=== PATIENT | female | born 1960 | race Caucasian/White ===

== ENCOUNTER 2016-09-15 17:56 | Inpatient (IN) ==
[2016-09-15] MEDS ORDERED: Ipratropium/Albuterol Neb 3 ML IH ONE (18:35)
[2016-09-15] MEDS ORDERED: methylPREDNISolone 125 MG/2 ML VIAL IVP ONE (18:35)
--- NOTE | 2016-09-15 18:38 | Emergency Department Note ---
Disposition Clinical Impression: Hypoxia, Acute exacerbation of chronic obstructive airways disease Pneumonia Qualifiers: Pneumonia type: due to unspecified organism Laterality: left Lung location: lower lobe of lung Qualified Code(s): J18.1 - Lobar pneumonia, unspecified organism Disposition: Admitted As Inpatient Condition: Fair Referrals: NONE,PCP [Primary Care Provider] - Forms: ED Satisfaction Letter Time of Disposition: 20:09 SOB HPI - General Chief Complaint: ED Shortness of Breath/Dyspnea Stated Complaint: ABDIEL Time Seen by Provider: 09/15/16 18:27 Source: patient Limitations: no limitations Nursing Notes Reviewed: Yes Vital Signs Reviewed: Yes - History of Present Illness 56-year-old female with a history COPD comes in complaining of shortness of breath. All socks on arrival was 75%. On a nonrebreather she is up to 97%. The patient states she thinks she has pneumonia. She's had a cough and shortness of breath for several days. Pt Subjective Complaint: shortness of breath, cough Onset (ago): day(s) Context: recent illness Severity: moderate, severe Consistency/Duration: constant Improves with: oxygen Worsens with: exertion Known history of: COPD Associated symptoms: Reports: fever, cough, wheezing Treatment prior to arrival: none Cough present: Yes Cough Description: Involuntary Cough Frequency: Intermittent - Related Data Previous Rx's Medication Instructions Recorded Sulfamethoxazole/Trimeth DS 1 each PO BID 7 Days 05/17/16 [Bactrim DS] cephALEXin [Keflex] 500 mg PO QID 7 Days 05/17/16 Allergies Allergy/AdvReac Type Severity Reaction Status Date / Time No Known Allergies Allergy Verified 09/15/16 18:19 All systems ED: reviewed and negative except as stated. Constitutional: Denies: fever, chills, weakness, weight change Eyes: Denies: eye pain, eye discharge, vision change ENT ED: Denies: ear pain, throat pain, dental pain, hearing loss, epistaxis, congestion, dysphagia Cardiovascular: Denies: chest pain, palpitations, dyspnea on exertion, edema, syncope Respiratory: Reports: cough, dyspnea, wheezes. Denies: hemoptysis, stridor Gastrointestinal: Denies: abdominal pain, nausea, vomiting, diarrhea, constipation, hematemesis, melena, hematochezia Genitourinary: Denies: dysuria, frequency, hematuria, discharge Musculoskeletal: Denies: back pain, neck pain, arthralgia, myalgia Integumentary: Denies: rash, abrasion, lesions Neurological: Denies: headache, weakness, numbness, paresthesias, confusion, abnormal gait, vertigo Psychiatric: Denies: anxiety, depression, suicidal thoughts, homicidal thoughts , auditory hallucinations, visual hallucinations Endocrine: Denies: fatigue Hematological/Lymphatic: Denies: easy bleeding, easy bruising Allergic/Immunologic: Denies: facial swelling, urticaria Past Medical History - Past Medical History Medical history: Reports: COPD, hypertension Psychiatric history: Reports: no psych history - Social History Smoking Status: Current every day smoker Smokeless Tobacco Status: No Alcohol use: Reports: none Drug use: Reports: none Physical Exam - General Limitations: no limitations General appearance: alert - Head Head exam: atraumatic, normocephalic, normal inspection - Eye Eye exam: Present: normal appearance, PERRL, EOMI - ENT ENT exam: normal exam, normal oropharynx, mucous membranes moist - Neck Neck exam: Present: normal inspection, full ROM, trachea midline - Chest Chest inspection: Present: normal inspection - Respiratory Respiratory exam: Present: wheezes, accessory muscle use - Cardiovascular Cardiovascular exam: Present: regular rate, normal rhythm, normal heart sounds - Abdominal Exam Abdominal exam: Present: soft - Extremities Exam Extremities exam: Present: normal inspection, full ROM. Absent: tenderness, pedal edema - Expanded Lower Extremity Exam Neurovascular/Tendon exam: Absent: motor deficit, sensory deficit, tendon deficit Gait: not tested/not observed - Back Exam Back exam: Present: normal inspection, full ROM. Absent: tenderness - Neurological Exam Neurological exam: Present: alert, oriented X3 - Psychiatric Psychiatric exam: Present: normal affect, normal mood - Skin Skin exam: Present: warm, dry, intact, normal color Course - Reevaluation(s) Reevaluation #1: 56-year-old with increasing shortness of breath. Patient has COPD on home oxygen. Was hypoxic initially on arrival. Chest x-ray does show a left lower lobe infiltrate. Patient will be given Levaquin and admitted to the hospital. Time: 20:08 - Consultations Consultation #1: Discussed with Dr.Tress stevenson. Time: 20:08 Vital Signs Temperature 98.3 F 09/15/16 18:20 Pulse Rate 71 09/15/16 18:20 Respiratory Rate 24 09/15/16 18:20 Blood Pressure 105/71 09/15/16 18:20 O2 Sat by Pulse Oximetry 75 09/15/16 18:20 Temperature 98.3 F 09/15/16 18:20 Pulse Rate 71 09/15/16 18:20 Respiratory Rate 18 09/15/16 19:03 Blood Pressure 105/71 09/15/16 18:20 O2 Sat by Pulse Oximetry 90 09/15/16 19:15 Oxygen Delivery Oxygen Delivery Room Air Shortness of Breath/Dyspnea - Lab Data Lab results reviewed: Yes I reviewed the patient's lab results. Result diagrams: 09/15/16 18:59 09/15/16 18:59 Lab Results 09/15/16 09/15/16 09/15/16 Range/Units 18:52 18:59 18:59 WBC 10.3 (4.3-11.1) K/mcL RBC 4.49 (3.82-4.97) M/mcL Hgb 12.7 (11.5-15.4) g/dL Hct 39.5 (35.3-44.9) % MCV 88.0 (83.0-100.0) fL MCH 28.3 (28.0-33.3) pg MCHC 32.2 (31.6-35.5) g/dL RDW 13.4 (11.5-14.5) % Plt Count 318 (140-400) K/mcL MPV 9.7 (9.4-12.4) fL Immature Gran % 0.4 (0-4) % Seg Neutrophils % 67.0 % Lymphocytes % 21.4 % Monocytes % 8.3 % Eosinophils % 2.1 % Basophils % 0.8 % Neutrophils # 6.9 (1.6-8.9) K/mcL Lymphocytes # 2.2 (0.6-4.6) K/mcL Monocytes # 0.9 (0.0-1.3) K/mcL Eosinophils # 0.2 (0.0-0.6) K/mcL Basophils # 0.1 (0.0-0.2) K/mcL Reactive Lymphocytes Present A (Not Present) Platelet Estimate Normal (Normal) ABG pH 7.44 (7.32-7.45) pH Units ABG pCO2 50 H (35-45) mmHg ABG pO2 57 L (85-104) mmHg ABG HCO3 34.0 H (21-27) mEQ/L ABG Total CO2 35.5 H (20-26) mEq/L ABG O2 Saturation 90 L (95-98) % ABG Base Excess 8.3 H (-2.0 to 3.0) mEq/L Blood Gas Modality NRB Inspired O2 100 % Sodium 138 (136-145) mEq/L Potassium 2.4 L* (3.5-4.5) mEq/L Chloride 96 L (98-109) mEq/L Carbon Dioxide 31 H (19-29) mEq/L BUN 11 (7-20) mg/dL Creatinine 0.86 (0.57-1.11) mg/dL Est GFR ( Amer) > 60 (> 60) Est GFR (Non-Af Amer) > 60 (> 60) BUN/Creatinine Ratio 13 (6-26) Glucose 136 H (70-99) mg/dL Calculated Osmolality 287 (280-300) Lactic Acid (0.5-2.2) mmol/L Calcium 9.4 (8.6-10.8) mg/dL Troponin I (0-0.03) ng/mL B-Natriuretic Peptide (0-100) pg/mL 09/15/16 09/15/16 09/15/16 Range/Units 18:59 18:59 18:59 WBC (4.3-11.1) K/mcL RBC (3.82-4.97) M/mcL Hgb (11.5-15.4) g/dL Hct (35.3-44.9) % MCV (83.0-100.0) fL MCH (28.0-33.3) pg MCHC (31.6-35.5) g/dL RDW (11.5-14.5) % Plt Count (140-400) K/mcL MPV (9.4-12.4) fL Immature Gran % (0-4) % Seg Neutrophils % % Lymphocytes % % Monocytes % % Eosinophils % % Basophils % % Neutrophils # (1.6-8.9) K/mcL Lymphocytes # (0.6-4.6) K/mcL Monocytes # (0.0-1.3) K/mcL Eosinophils # (0.0-0.6) K/mcL Basophils # (0.0-0.2) K/mcL Reactive Lymphocytes (Not Present) Platelet Estimate (Normal) ABG pH (7.32-7.45) pH Units ABG pCO2 (35-45) mmHg ABG pO2 (85-104) mmHg ABG HCO3 (21-27) mEQ/L ABG Total CO2 (20-26) mEq/L ABG O2 Saturation (95-98) % ABG Base Excess (-2.0 to 3.0) mEq/L Blood Gas Modality Inspired O2 % Sodium (136-145) mEq/L Potassium (3.5-4.5) mEq/L Chloride (98-109) mEq/L Carbon Dioxide (19-29) mEq/L BUN (7-20) mg/dL Creatinine (0.57-1.11) mg/dL Est GFR ( Amer) (> 60) Est GFR (Non-Af Amer) (> 60) BUN/Creatinine Ratio (6-26) Glucose (70-99) mg/dL Calculated Osmolality (280-300) Lactic Acid 1.1 (0.5-2.2) mmol/L Calcium (8.6-10.8) mg/dL Troponin I 0.00 (0-0.03) ng/mL B-Natriuretic Peptide 100 (0-100) pg/mL - Radiology Data Radiology results reviewed: Yes I reviewed the patient's radiology results. Chest X-Ray 09/15/16 18:35 IMPRESSION: Patchy left basilar opacity which may represent atelectasis or pneumonia. Increased prominence of the right hilum. This could be related to portable technique. Consider short-term follow-up or dedicated two view chest x-ray. If this persists, further evaluation with a contrast-enhanced CT may be warranted. D/ / 09/15/2016 19:01:55 Ivet Martinez MD / [facility] Interpreting Provider: Ivet Martinez MD - EKG Data EKG attestation: Yes I reviewed and interpreted this EKG. EKG shows normal: Reports: sinus rhythm Rate: Reports: normal Rhythm: Reports: NSR [place]/QRS: Reports: IVCD T wave inversions noted in: Reports: v1, v2, v3, v4, v5, v6 Interpretation: Reports: other (T-wave inversion in the precordial leads.)
[2016-09-15 19:00] LABS: ABG Base Excess 8.3 mEq/L (-2.0 to 3.0); ABG Oxygen Saturation 90 % (95-98); ABG PCO2 50 mmHg (35-45); ABG PH 7.44 pH Units (7.32-7.45); ABG PO2 57 mmHg (85-104); ABG TCO2 35.5 mEq/L (20-26); Blood Gas FiO2 100 %
[2016-09-15 19:07] LABS: Basophils # 0.1 K/mcL (0.0-0.2); Basophils % 0.8 %; Eosinophils # 0.2 K/mcL (0.0-0.6); Eosinophils % 2.1 %; Hematocrit 39.5 % (35.3-44.9); Hemoglobin 12.7 g/dL (11.5-15.4); Immature Granulocytes % 0.4 % (0-4); Lymphocytes # 2.2 K/mcL (0.6-4.6); Lymphocytes % 21.4 %; Mean Corpuscular HGB Conc 32.2 g/dL (31.6-35.5); Mean Corpuscular Hemoglobin 28.3 pg (28.0-33.3); Mean Platelet Volume 9.7 fL (9.4-12.4); Monocytes # 0.9 K/mcL (0.0-1.3); Monocytes % 8.3 %; Neutrophils # 6.9 K/mcL (1.6-8.9); Platelet Count 318 K/mcL (140-400); Red Blood Count 4.49 M/mcL (3.82-4.97); Red Cell Distribution Width 13.4 % (11.5-14.5)
[2016-09-15 19:19] LABS: BUN/Creatinine Ratio 13 (6-26); Blood Urea Nitrogen 11 mg/dL (7-20); Calcium 9.4 mg/dL (8.6-10.8); Carbon Dioxide 31 mEq/L (19-29); Chloride 96 mEq/L (98-109); Glucose 136 mg/dL (70-99); Osmolality,Calculated 287 (280-300); Sodium 138 mEq/L (136-145); eGFR For African Americans > 60 (> 60); eGFR For Non-African Americans > 60 (> 60)
[2016-09-15 19:21] LABS: Potassium 2.4 mEq/L (3.5-4.5)
[2016-09-15 19:34] LABS: Reactive Lymphocytes Present (Not Present)
[2016-09-15 19:35] LABS: Platelet Estimate Normal (Normal)
[2016-09-15] MEDS ORDERED: Levofloxacin 750 MG/150 ML 750 MG/150 ML BAG IVPB ONE (19:56)
[2016-09-15] MEDS ORDERED: 0.9 % Sodium Chloride 1,000 ML IVC ONE (20:21)
[2016-09-15] MEDS ORDERED: Acetaminophen 325 MG TABLET PO PRN (20:52)
[2016-09-15] MEDS ORDERED: Naloxone 0.4 MG/ML INJ IVP PRN (20:52)
[2016-09-15] MEDS ORDERED: Furosemide 20 MG/2 ML VIAL IVP ONE (21:03)
[2016-09-15] MEDS ORDERED: Potassium Chloride 20 MEQ, Lidocaine 1% 2 ML in D5% in Water 250 ML IVPB ONE (21:06)
--- NOTE | 2016-09-15 21:07 | Event Note ---
Date of Encounter: 09/15/16 Time of Encounter: 21:02 Patient seen and examined with nurse practitioner. 56-year-old female with history of COPD not on O2, presents to the ED with shortness of breath. She was pretty hypoxic requiring non-rebreather on arrival to the ER. Currently she is on the 5 L. Speaking in full sentences. We will treat for community acquired pneumonia and COPD exacerbation with oral steroids and around-the- clock nebulizer treatment. Her electrocardiogram shows diffuse T wave inversion in the precordial leads. Will have to rule out acute coronary syndrome although hypokalemia may cause these changes, her potassium is 2.4. Serial cardiac markers. Will give one dose of Lovenox for possibility of angina equivalent since she has been describing orthopnea the past couple weeks. Cardiology consultation. She does have risk factors for coronary artery disease including age, chronic smoking, hypertension, and positive family history so needs coronary evaluation. Never had that before. Replace hypokalemia. Check magnesium and replace accordingly. Hypokalemia is due to diuretics. But also give the patient gentle diuresis. Check BNP. She is focal
[2016-09-15] MEDS ORDERED: Albuterol 2.5 MG/3 ML NEBULIZER IH PRN (21:08)
[2016-09-15] MEDS ORDERED: *HR* Enoxaparin 80 MG/0.8 ML SYRINGE SQ SCH (21:12)
--- NOTE | 2016-09-15 21:19 | Internal Med History&Physical ---
Date of Encounter: 09/15/16 Time of Encounter: 21:16 Assessment and Plan (1) Hypoxia Current visit: Yes Status: Acute Patient presenting with shortness of breath, satting 75% on room air, improved to low 90s on 5L. CXR sows patchy left basilar opacity consistent with pneumonia vs. atelectasis. She has mild wheezing on the left with mild crackles in left base. ABG showed pO2 of 57. Hypoxia secondary to Pneumonia and COPD exacerbation, but also concerned about cardiac origins with ekg changes. Treating Pneumonia and COPD with nebulizers, steroids, antibiotics weight based lovenox, echocardiogram, serial troponins and cardiology consult. 20mg Lasix IVP ordered daily with concern for element of CHF. continuous pulse oximetry titrate oxygen to maintain saturation > 90% (2) Pneumonia Current visit: Yes Status: Acute Shortness of breath and productive cough. CXR showed patchy left basilar opacity consistent with atelectasis vs. pneumonia. Levaquin IVPB duonebs QID albuterol nebulizer Q2hr PRN titrate O2 to maintain saturation > 90% Qualifiers: Pneumonia type: due to unspecified organism Laterality: left Lung location: lower lobe of lung Qualified Code(s): J18.1 - Lobar pneumonia, unspecified organism (3) Hypokalemia Current visit: Yes Status: Acute potassium of 2.4. Patient on lasix and lisinopril at home and does not take potassium supplement. T-wave inversions on EKG possibly due to hypokalemia. Continuous awake overnight monitor. stat magnesium ordered. Total of 30mEq IV and 40mEq PO ordered, recheck chemistry and magnesium in the morning. (4) Acute electrocardiogram changes Current visit: Yes Status: Acute EKG shows t-wave inversions in pre-cordial leads. Patient denies chest pain but presents with shortness of breath and hypoxia. She has risk factors for CAD including HTN, smoking, and family history. T-wave changes possibly due to hypokalemia with potassium of 2.4. weight based lovenox given x 1 dose. Will get dVT prophylactic dose in morning. Trend troponin continuous awake overnight monitor echocardiogram cardiology consult (5) Acute exacerbation of chronic obstructive airways disease Current visit: Yes Status: Acute Patient with COPD presenting with productive cough, shortness of breath and hypoxia. ABG sowed pCO2 of 50 and pO2 of 57. She was satting 75% on room air, improved to low 90s% on 5L NC. CXR sowed patchy left basilar opacity consistent with atelectasis vs. Pneumonia. 125mg of solu-medrol IVP given, continue with prednisone PO 40mg daily duoneb treatments QID albuterol nebulizer Q2h PRN budesonide/formotorol BID titrate oxygen to maintain saturation > 90%. (6) DVT prophylaxis Current visit: Yes Status: Acute Internal Medicine - H&P: HPI Chief complaint: shortness of breath Admitted From: Emergency Dept Plans for Post Hospital Care: Home History of present illness: Ms. Quiles is a 56 year old female with hypertension, COPD, hepatitis C, presented to the emergency department today with complaints of shortness of breath and productive cough. Patient reports that approximately a week ago she had symptoms starting with a productive cough, she had increasing shortness of breath over the last week, with subjective fever and chills. She presented to her PCP today who sent her over to the emergency room. Patient reports occasional lightheadedness. She denies any chest pain, palpitations. She reports occasional wheezing, and poor appetite. She denies any nausea, vomiting , diarrhea, abdominal pain, numbness or tingling. Evaluation in the emergency department revealed patient was satting 75% on room air, she improved to the low 90s on 5 L nasal cannula. White blood cell count was normal at 10.3. Lactate was normal at 1.1. She was hypokalemic with potassium of 2.4. Troponin was negative at 0.00, BNP was normal at 100. Chest x-ray showed patchy left basilar opacity, which is atelectasis versus pneumonia. EKG was sinus rhythm with T-wave inversions in precordial leads, which is new from previous. On exam, patient alert and oriented, in no acute distress. Heart has regular rate and rhythm. Lungs with mild wheezes on the left side, and mild crackles in the left base. No peripheral edema, peripheral pulses strong and intact. Past Med Surg Social Fam HX - Past Medical History Medical history: COPD, hepatitis, hypertension Psychiatric history: no psych history - Past Surgical History Surgical History: cholecystectomy, hysterectomy - Social History Smoking Status: Current every day smoker Smokeless Tobacco Status: No Alcohol use: none Drug use: none - Family History Father Living Status: Hx Family Cardiac Disorders: Yes Mother Living Status: Hx Family Endocrine Disorder: Yes (DM) Internal Medicine - H&P: Meds Albuterol Sulfate [Albuterol Inhaler] 2 puff IH Q4H PRN 09/15/16 [History] Atenolol [Tenormin] 50 mg PO DAILY 09/15/16 [History] Buprenorphine HCl/Naloxone HCl [Suboxone 8 mg-2 mg Sl Film] 1 each SL BID [History] Cyclobenzaprine [Flexeril] 10 mg PO TID PRN 09/15/16 [History] Furosemide [Lasix] 20 mg PO DAILY 09/15/16 [History] Lisinopril [Zestril] 20 mg PO DAILY 09/15/16 [History] levoFLOXacin [Levofloxacin] 500 mg PO DAILY 09/15/16 [History] Allergies No Known Allergies Allergy (Verified 09/15/16 18:19) All Systems PM: A 10-system review of systems was performed and is negative for pertinent findings except as documented above in the HPI. - Constitutional Constitutional: anorexia, chills, fever(s), no night sweats - EENT Eyes: no change in vision, no discharge, no pain, no photophobia Ears: no ear discharge, no ear pain, no tinnitus Nose, mouth and throat: no dysphagia, no nasal discharge, no neck pain, no sore throat - Cardiovascular Cardiovascular ROS IM: dyspnea, dyspnea on exertion, lightheadedness, orthopnea , no chest pain, no diaphoresis, no palpitations, no syncope - Respiratory Respiratory: cough, dyspnea, dyspnea on exertion, wheezing, chest congestion, excessive phlegm production - Gastrointestinal Gastrointestinal: no abdominal pain, no diarrhea, no hematemesis, no hematochezia, no melena, no nausea, no vomiting - Genitourinary Genitourinary: no change in urinary stream, no dysuria, no flank pain, no hematuria - Musculoskeletal Musculoskeletal ROS IM: no numbness, no tingling - Integumentary Integumentary IM: no rash, no unusual bruising - Neurological Neurological ROS: no confusion, no convulsions, no focal weakness, no numbness, no tingling, no tremor(s) - Hematologic/Lymphatic Hematologic/Lymphatic: no easy bruising - Constitutional Vitals: Temp Pulse Resp BP Pulse Ox 98.3 F 63 22 109/74 90 09/15/16 18:20 09/15/16 20:31 09/15/16 20:46 09/15/16 20:46 09/15/16 20:31 General appearance: Present: A&O X 3, pleasant, no acute distress - Head Head exam: Present: atraumatic, normocephalic - Eye Eye exam: Present: PERRL, conjuntiva pink, sclera anicteric Pupils: Present: PERRL - Neck Neck exam general surgery: Present: supple, trachea midline. Absent: lymphadenopathy - Respiratory Respiratory exam: Present: rales (left base), wheezes (left side). Absent: accessory muscle use, rhonchi - Cardiovascular Cardiovascular exam: Present: RRR, +S1, +S2. Absent: diastolic murmur, gallop, rubs, systolic murmur - GI/Abdominal GI/Abdominal exam: Present: normal bowel sounds, soft, no peritoneal signs. Absent: distended, tenderness - Extremities Exam Extremities exam: Present: warm, radial pulses palpable and symetrical. Absent : calf tenderness, cyanotic, pedal edema - Neurological Exam Neurological exam: Present: CN II-XII intact, oriented X3, no focal deficits. Absent: facial droop, speech deficit - Skin Skin exam: Present: dry, intact Internal Med - H&P Results - Labs CBC & Chem 7: 09/15/16 18:59 09/15/16 18:59 Labs: All Lab Results (24 Hours) 09/15/16 09/15/16 09/15/16 Range/Units 18:52 18:59 18:59 WBC 10.3 (4.3-11.1) K/mcL RBC 4.49 (3.82-4.97) M/mcL Hgb 12.7 (11.5-15.4) g/dL Hct 39.5 (35.3-44.9) % MCV 88.0 (83.0-100.0) fL MCH 28.3 (28.0-33.3) pg MCHC 32.2 (31.6-35.5) g/dL RDW 13.4 (11.5-14.5) % Plt Count 318 (140-400) K/mcL MPV 9.7 (9.4-12.4) fL Immature Gran % 0.4 (0-4) % Seg Neutrophils % 67.0 % Lymphocytes % 21.4 % Monocytes % 8.3 % Eosinophils % 2.1 % Basophils % 0.8 % Neutrophils # 6.9 (1.6-8.9) K/mcL Lymphocytes # 2.2 (0.6-4.6) K/mcL Monocytes # 0.9 (0.0-1.3) K/mcL Eosinophils # 0.2 (0.0-0.6) K/mcL Basophils # 0.1 (0.0-0.2) K/mcL Reactive Lymphocytes Present A (Not Present) Platelet Estimate Normal (Normal) ABG pH 7.44 (7.32-7.45) pH Units ABG pCO2 50 H (35-45) mmHg ABG pO2 57 L (85-104) mmHg ABG HCO3 34.0 H (21-27) mEQ/L ABG Total CO2 35.5 H (20-26) mEq/L ABG O2 Saturation 90 L (95-98) % ABG Base Excess 8.3 H (-2.0 to 3.0) mEq/L Blood Gas Modality NRB Inspired O2 100 % Sodium 138 (136-145) mEq/L Potassium 2.4 L* (3.5-4.5) mEq/L Chloride 96 L (98-109) mEq/L Carbon Dioxide 31 H (19-29) mEq/L BUN 11 (7-20) mg/dL Creatinine 0.86 (0.57-1.11) mg/dL Est GFR ( Amer) > 60 (> 60) Est GFR (Non-Af Amer) > 60 (> 60) BUN/Creatinine Ratio 13 (6-26) Glucose 136 H (70-99) mg/dL Calculated Osmolality 287 (280-300) Lactic Acid (0.5-2.2) mmol/L Calcium 9.4 (8.6-10.8) mg/dL Troponin I (0-0.03) ng/mL B-Natriuretic Peptide (0-100) pg/mL 09/15/16 09/15/16 09/15/16 Range/Units 18:59 18:59 18:59 WBC (4.3-11.1) K/mcL RBC (3.82-4.97) M/mcL Hgb (11.5-15.4) g/dL Hct (35.3-44.9) % MCV (83.0-100.0) fL MCH (28.0-33.3) pg MCHC (31.6-35.5) g/dL RDW (11.5-14.5) % Plt Count (140-400) K/mcL MPV (9.4-12.4) fL Immature Gran % (0-4) % Seg Neutrophils % % Lymphocytes % % Monocytes % % Eosinophils % % Basophils % % Neutrophils # (1.6-8.9) K/mcL Lymphocytes # (0.6-4.6) K/mcL Monocytes # (0.0-1.3) K/mcL Eosinophils # (0.0-0.6) K/mcL Basophils # (0.0-0.2) K/mcL Reactive Lymphocytes (Not Present) Platelet Estimate (Normal) ABG pH (7.32-7.45) pH Units ABG pCO2 (35-45) mmHg ABG pO2 (85-104) mmHg ABG HCO3 (21-27) mEQ/L ABG Total CO2 (20-26) mEq/L ABG O2 Saturation (95-98) % ABG Base Excess (-2.0 to 3.0) mEq/L Blood Gas Modality Inspired O2 % Sodium (136-145) mEq/L Potassium (3.5-4.5) mEq/L Chloride (98-109) mEq/L Carbon Dioxide (19-29) mEq/L BUN (7-20) mg/dL Creatinine (0.57-1.11) mg/dL Est GFR ( Amer) (> 60) Est GFR (Non-Af Amer) (> 60) BUN/Creatinine Ratio (6-26) Glucose (70-99) mg/dL Calculated Osmolality (280-300) Lactic Acid 1.1 (0.5-2.2) mmol/L Calcium (8.6-10.8) mg/dL Troponin I 0.00 (0-0.03) ng/mL B-Natriuretic Peptide 100 (0-100) pg/mL - Diagnostic Studies Chest x-ray Additional comments: Chest X-Ray 09/15/16 18:35 IMPRESSION: Patchy left basilar opacity which may represent atelectasis or pneumonia. Increased prominence of the right hilum. This could be related to portable technique. Consider short-term follow-up or dedicated two view chest x-ray. If this persists, further evaluation with a contrast-enhanced CT may be warranted. D/ / 09/15/2016 19:01:55 [facility] / [facility] Interpreting Provider: Ivet Martinez MD
[2016-09-15] MEDS ORDERED: Budesonide/Formoterol 160/4.5 MDI IH SCH (22:00)
[2016-09-15] MEDS: Ipratropium/Albuterol Neb 3 ML IH SCH (22:56)
[2016-09-16] MEDS: Ipratropium/Albuterol Neb 3 ML IH SCH ×4 (04:59→23:56)
[2016-09-16] MEDS: *HR* Enoxaparin 40 MG/0.4 ML SYRINGE SQ SCH (06:12)
[2016-09-16 06:15] LABS: Basophils % 0.2 %; Hematocrit 40.2 % (35.3-44.9); Hemoglobin 12.8 g/dL (11.5-15.4); Immature Granulocytes % 0.8 % (0-4); Lymphocytes # 0.9 K/mcL (0.6-4.6); Lymphocytes % 10.7 %; Mean Corpuscular HGB Conc 31.8 g/dL (31.6-35.5); Mean Corpuscular Hemoglobin 28.3 pg (28.0-33.3); Mean Corpuscular Volume 88.9 fL (83.0-100.0); Mean Platelet Volume 9.6 fL (9.4-12.4); Monocytes # 0.2 K/mcL (0.0-1.3); Monocytes % 1.7 %; Neutrophils # 7.5 K/mcL (1.6-8.9); Platelet Count 321 K/mcL (140-400); Red Blood Count 4.52 M/mcL (3.82-4.97); Red Cell Distribution Width 13.4 % (11.5-14.5); Segmented Neutrophils % 86.6 %
[2016-09-16 06:29] LABS: BUN/Creatinine Ratio 13 (6-26); Blood Urea Nitrogen 11 mg/dL (7-20); Carbon Dioxide 27 mEq/L (19-29); Chloride 100 mEq/L (98-109); Glucose 171 mg/dL (70-99); Magnesium 1.4 mg/dL (1.6-2.6); Osmolality,Calculated 289 (280-300); Sodium 138 mEq/L (136-145); eGFR For African Americans > 60 (> 60); eGFR For Non-African Americans > 60 (> 60)
[2016-09-16 07:49] LABS: Magnesium 1.5 mg/dL (1.6-2.6)
[2016-09-16] MEDS ORDERED: Magnesium Sulfate 2 GM in D5% in Water 100 ML IVPB ONE (08:41)
--- NOTE | 2016-09-16 08:53 | Internal Med Progress Note ---
Date of Encounter: 09/18/16 Time of Encounter: 08:50 - Assessment and plan (1) Acute on chronic respiratory failure with hypoxemia Current Visit: Yes Status: Acute (2) Acute electrocardiogram changes Current Visit: Yes Status: Acute Assessment and plan: diffuse T-wave inversion in absence chest pain and negative troponins. contract consultant (3) Acute exacerbation of chronic obstructive airways disease Current Visit: Yes Status: Acute (4) DVT prophylaxis Current Visit: Yes Status: Acute (5) Pneumonia Current Visit: Yes Status: Acute Qualifiers: Pneumonia type: due to unspecified organism Laterality: left Lung location: lower lobe of lung Qualified Code(s): J18.1 - Lobar pneumonia, unspecified organism (6) Hypomagnesemia Current Visit: Yes Status: Acute Assessment and plan: correctedand daily monitoring (7) Hypokalemia Current Visit: Yes Status: Acute Assessment and plan: [facility] - Subjective Interval history: Ms. Quiles is a 56 year old female with hypertension, COPD, hepatitis C, presented to the emergency department today with complaints of shortness of breath and productive cough. she is diagnosed with left lower lobacute exacerbation of COPD, acute on chronicrespiratory failure with hypoxemia and abnormal EKG. In absence of chest pain and ne negative troponin it would be interesting to compareEKG from the previous one. If one is not done this morning I will order another one. However simple explanation as the EKG changes are more hypoxemia related. I will DC therapeutic dose Lovenox and keep DVT prophylaxis. However once respiratory status has improved probably she will need outpatient stress test. I will add low-dose aspirin and due to severe hypoxemia with a white beta blocke at this time. I also noted that she is started on oral steroids. She will be switched to IV Solu-Medrol 60 every 8. Continue Levaquin 750.magnesium and potassium were low ansupplemented. RepeatBMP and magnesium in the mornin - Constitutional Vitals: Temp Pulse Resp BP Pulse Ox 97.9 F 68 18 97/70 90 09/16/16 06:42 09/16/16 06:42 09/16/16 06:42 09/16/16 06:42 09/16/16 06:42 General appearance: Present: A&O X 3, pleasant, no acute distress - Head Head exam: Present: atraumatic, normocephalic - Eye Eye exam: Present: PERRL, conjuntiva pink, sclera anicteric Pupils: Present: PERRL - Neck Neck exam general surgery: Present: supple, trachea midline. Absent: lymphadenopathy - Respiratory Respiratory exam: Present: decreased breath sounds, prolonged expiratory phase, wheezes. Absent: accessory muscle use, rales, rhonchi - Cardiovascular Cardiovascular exam: Present: RRR, +S1, +S2. Absent: diastolic murmur, gallop, rubs, systolic murmur - GI/Abdominal GI/Abdominal exam: Present: normal bowel sounds, soft, no peritoneal signs. Absent: distended, tenderness - Extremities Exam Extremities exam: Present: warm, radial pulses palpable and symetrical. Absent : calf tenderness, cyanotic, pedal edema - Neurological Exam Neurological exam: Present: CN II-XII intact, oriented X3, no focal deficits. Absent: pronater drift, facial droop, speech deficit - Skin Skin exam: Present: dry, intact Internal Medicine: Result - Labs CBC & Chem 7: 09/16/16 05:27 09/18/16 02:43 Labs: Short CBC 09/16/16 Range/Units 05:27 WBC 8.7 (4.3-11.1) K/mcL Hgb 12.8 (11.5-15.4) g/dL Hct 40.2 (35.3-44.9) % Plt Count 321 (140-400) K/mcL Neutrophils # 7.5 (1.6-8.9) K/mcL BMP 09/16/16 05:27 Sodium 138 Potassium 3.0 L Chloride 100 Carbon Dioxide 27 BUN 11 Creatinine 0.82 Glucose 171 H Calcium 9.0 Cardiac Enzymes 09/16/16 09/16/16 Range/Units 00:23 05:27 Troponin I 0.00 0.00 (0-0.03) ng/mL - ABG Interpretation ABG results: ABG ABG pH 7.44 pH Units (7.32-7.45) 09/15/16 18:52 ABG pCO2 50 mmHg (35-45) H 09/15/16 18:52 ABG pO2 57 mmHg (85-104) L 09/15/16 18:52 ABG O2 Saturation 90 % (95-98) L 09/15/16 18:52 Consult Discharge Plan - Plan Referrals: Michael Graham MD [Primary Care Provider] - 09/24/16 2:15 pm
--- NOTE | 2016-09-16 08:57 | Cardiology Consult Note ---
Date of Encounter: 09/16/16 Time of Encounter: 08:51 Assessment and Plan (1) T wave inversion in EKG Current Visit: Yes Status: Acute The T-wave inversion in leads V1-4 and V6 are most likely due to an electrolyte abnormality and not due to an ischemic cardiac process. Based on echo showing a LV EF of 60% with mild LV diastolic dysfunction as well as mild pulmonic and mitral valve dysfunction. There is also ascending aorta enlargement of [address] in the outpatient setting is recommended. Compared with old Echo done in 2011 showed 55% LVEF so her EF has actually improved since her last echo. We recommend she continue taking her lasix at the prescribed dose. This t-wave inversion should go away as the electrolytes normalize. Would recommend that she supplement her potassium either by diet or by medication and that could be done through her PCP. There is no cardiac issues at this time. Cardiology will be signing off. (2) Acute electrocardiogram changes Current Visit: Yes Status: Acute New t-wave inversion in V 1-4 and V6 which are new from old EKG done 2010. These are most likey due to electrolyte abnormalites. See above plan. (3) Hypokalemia Current Visit: Yes Status: Acute She has hypokalemia with a first one of 2.4 and then 3.0 after po and iv potassium supplementation. This was most likely due her being on lasix and not supplementing her potassium. As this normalizes the EKG should also normalize with there no longer being t-wave inversions. There is no other recommendations at this time other than replenishing the potassium for this problem. (4) Hypertension Current Visit: Yes Status: Chronic Chronic issue and is well controlled with current regimen of Lisinopril 20 mg daily and Lasix 20mg daily. F/u with PCP about any htn issues. Qualifiers: Hypertension type: essential hypertension Qualified Code(s): I10 - Essential (primary) hypertension Discussion w patient/family: The assessment and plan as outlined above was discussed with the patient and/or family members who expressed understanding and agreement. All questions were answered. Thank you for involving us in the care of your patient. Please call with any questions. History of Present Illness Consult date: 09/15/16 Requesting physician: Lynn Vidales Consult reason: New T-Wave inversion Chief complaint: ABDIEL History of present illness: Ms. Quiles is a 56 year old female with pertinent pmh of HTN and COPD. She has no cardiac history other than hypertension where she is on 20mg Lisinopril daily and 20mg Lasix daily and it's well controlled. She doesn't note any chest pain at this time and has yet to have any during her current admission. She is only complaining of shortness of breath but that has gotten much better today since original admission. She has no pedal edema. She does note a family history cardiac issues but is unsure exactly what they were other than her family just had heart attacks but she states they occurred at an older age. Past Med Surg Social Fam HX - Past Medical History Medical history: COPD, hepatitis, hypertension Psychiatric history: no psych history - Past Surgical History Surgical History: cholecystectomy, hysterectomy - Social History Smoking Status: Current every day smoker Smokeless Tobacco Status: No Alcohol use: none Drug use: none - Family History Father Living Status: Hx Family Cardiac Disorders: Yes Mother Living Status: Hx Family Endocrine Disorder: Yes (DM) Medications and Allergies Albuterol Sulfate [Albuterol Inhaler] 2 puff IH Q4H PRN 09/15/16 [History] Atenolol [Tenormin] 50 mg PO DAILY 09/15/16 [History] Buprenorphine HCl/Naloxone HCl [Suboxone 8 mg-2 mg Sl Film] 1 each SL BID [History] Cyclobenzaprine [Flexeril] 10 mg PO TID PRN 09/15/16 [History] Furosemide [Lasix] 20 mg PO DAILY 09/15/16 [History] Lisinopril [Zestril] 20 mg PO DAILY 09/15/16 [History] levoFLOXacin [Levofloxacin] 500 mg PO DAILY 09/15/16 [History] Allergies No Known Allergies Allergy (Verified 09/15/16 18:19) All Systems Review: A 10-system review of systems was performed and is negative for pertinent findings except as documented above in the HPI. - Constitutional Constitutional: no chills, no daytime sleepiness, no fatigue, no fever(s), no headache(s), no lethargy, no malaise, no weakness, no weight gain, no weight loss - EENT Eyes: no blurred vision Nose, mouth and throat: no bleeding gums, no dysphagia, no mouth pain, no sore throat - Cardiovascular Cardiovascular: no chest pain at rest, no chest pain with exertion, no claudication, no diaphoresis, no dyspnea at rest, no dyspnea on exertion, no irregular heart rhythm, no radiating jaw, neck or arm pain, no leg edema, no lightheadedness, no orthopnea, no palpitations, no rapid heart rate, no slow heart rate, no syncope - Respiratory Respiratory: dyspnea, wheezing, no cough, no hemoptysis - Gastrointestinal Gastrointestinal: no abdominal pain, no coffee ground emesis, no constipation, no diarrhea, no dysphagia - Genitourinary Genitourinary: no dysuria, no hematuria - Musculoskeletal Musculoskeletal: no abnormal gait, no arthralgias, no back pain - Integumentary Integumentary: no erythema, no rash - Neurological Neurological: no abnormal speech, no dizziness, no focal weakness, no loss of vision - Psychiatric Psychiatric: no anxiety, no depression - Hematological/Lymphatic Hematologic/Lymphatic: no easy bleeding, no easy bruising Physical Examination Vital Signs, Last 4 Hours Temp Pulse Resp BP Pulse Ox 09/16/16 06:42 97.9 F 68 18 97/70 90 09/16/16 05:00 18 90 General: Conversant, No Apparent Distress HEENT: Atraumatic, Normocephaly, Mucus Membranes Moist Neck: No JVD, Normal carotid pulses Cardiac: Reg Rate and Rhythm, Normal S1 and S2, No Murmur Lungs: Normal Breath Sounds, No Wheeze, Rales, Rhonchi Neuro: Alert and responsive, No focal deficits noted Abdomen: Soft, Non-Tender Skin: No rashes noted on visualized skin Musculoskeletal: No Chest Wall Tenderness Extremities: No Clubbing, No Cyanosis, No Edema, Normal Pulses Results 09/16/16 05:27 09/16/16 05:27 Lab Results 09/16/16 09/16/16 09/16/16 00:23 05:27 05:27 WBC 8.7 Hgb 12.8 Hct 40.2 Plt Count 321 Sodium 138 Potassium 3.0 L Chloride 100 Carbon Dioxide 27 BUN 11 Creatinine 0.82 Glucose 171 H Calcium 9.0 Magnesium 1.4 L Troponin I 0.00 09/16/16 05:27 WBC Hgb Hct Plt Count Sodium Potassium Chloride Carbon Dioxide BUN Creatinine Glucose Calcium Magnesium Troponin I 0.00 - Imaging and Cardiology Chest Xray: report reviewed, image reviewed Echo: report reviewed - EKG Interpretation EKG results cardiology: personally reviewed, other (There are inverted T-Waves in V1-V4 that are new when compared to to old ekg done in 2010.) Consult Discharge Plan - Plan Referrals: Michael Graham MD [Primary Care Provider] - 09/24/16 2:15 pm
[2016-09-16] MEDS ORDERED: predniSONE 20 MG TABLET PO SCH (09:00)
[2016-09-16] MEDS: methylPREDNISolone 125 MG/2 ML VIAL IVP SCH ×2 (09:46→16:09)
[2016-09-16] MEDS: Furosemide 20 MG/2 ML VIAL IVP SCH (09:46)
[2016-09-16] MEDS: Levofloxacin 750 MG/150 ML 750 MG/150 ML BAG IVPB SCH (09:47)
[2016-09-16] MEDS: Lisinopril 20 MG TABLET PO SCH (09:47)
[2016-09-16] MEDS: Nicotine 14 MG PATCH.TD24 TD SCH (13:35)
[2016-09-16 17:00] LABS: Amphetamine Screen,Urine Negative ng/mL (Cutoff=1000); Barbiturate Screen,Urine Negative ng/mL (Cutoff=200); Benzodiazepines Screen,Urine Negative ng/mL (Cutoff=200); Cannabinoid Screen,Urine Negative ng/mL (Cutoff = 50); Cocaine Screen,Urine Negative ng/mL (Cutoff= 300); Opiate Screen,Urine Negative ng/mL (Cutoff=300); Phencyclidine Screen,Urine Negative ng/mL (Cutoff=25)
--- NOTE | 2016-09-16 21:51 | Electrocardiograph Report ---
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
[2016-09-17] MEDS: methylPREDNISolone 125 MG/2 ML VIAL IVP SCH ×3 (00:23→18:08)
[2016-09-17] MEDS: Ipratropium/Albuterol Neb 3 ML IH SCH ×4 (04:07→22:46)
[2016-09-17 04:08] LABS: Alanine Aminotransferase 7 Units/L (0-55); Albumin 3.1 g/dL (3.5-5.0); Albumin/Globulin Ratio 0.7 (1.1-2.2); Alkaline Phosphatase 93 Units/L (38-126); BUN/Creatinine Ratio 21 (6-26); Bilirubin,Total 0.3 mg/dL (0.2-1.2); Blood Urea Nitrogen 18 mg/dL (7-20); Calcium 9.8 mg/dL (8.6-10.8); Carbon Dioxide 28 mEq/L (19-29); Chloride 102 mEq/L (98-109); Globulin 4.7 g/dL (2.4-3.5); Glucose 126 mg/dL (70-99); Osmolality,Calculated 293 (280-300); Sodium 140 mEq/L (136-145); Total Protein 7.8 g/dL (6.0-8.3); eGFR For African Americans > 60 (> 60); eGFR For Non-African Americans > 60 (> 60)
[2016-09-17 04:13] LABS: Aspartate Amino Transferase 17 Units/L (5-34); Magnesium 2.4 mg/dL (1.6-2.6); Potassium 4.3 mEq/L (3.5-4.5)
[2016-09-17] MEDS: *HR* Enoxaparin 40 MG/0.4 ML SYRINGE SQ SCH (06:09)
--- NOTE | 2016-09-17 08:30 | Internal Med Progress Note ---
Date of Encounter: 09/18/16 Time of Encounter: 08:23 - Assessment and plan (1) Acute on chronic respiratory failure with hypoxemia Current Visit: Yes Status: Acute Assessment and plan: Secondary to acute exacerbation of COPD and left-sided pneumonia (2) Acute electrocardiogram changes Current Visit: Yes Status: Acute Assessment and plan: diffuse T-wave inversion in absence chest pain and negative troponins. healthcare consultant suspect T-wave changes due to combination of hypoxemia and hypokalemia (3) Acute exacerbation of chronic obstructive airways disease Current Visit: Yes Status: Acute Assessment and plan: On IV steroids and med nebs Mucinex (4) DVT prophylaxis Current Visit: Yes Status: Acute Assessment and plan: On Lovenox subcutaneous (5) Pneumonia Current Visit: Yes Status: Acute Assessment and plan: On Levaquin 750 mg Qualifiers: Pneumonia type: due to unspecified organism Laterality: left Lung location: lower lobe of lung Qualified Code(s): J18.1 - Lobar pneumonia, unspecified organism (6) Hypomagnesemia Current Visit: Yes Status: Acute Assessment and plan: correctedand daily monitoring (7) Hypokalemia Current Visit: Yes Status: Acute Assessment and plan: corrected and recheck in the mornin daily monitoring (8) Dilated aortic root Current Visit: Yes Status: Acute Assessment and plan: Echocardiogram showed ascending aorta [address] chest ordered to rule out aneurysm - Subjective Interval history: Ms. Quiles is a 56 year old female with hypertension, COPD, hepatitis C, presented with complaints of shortness of breath and productive cough. she is diagnosed with left lower lobe pneumonia acute exacerbation of COPD, acute on chronic respiratory failure with hypoxemia and abnormal EKG. In absence of chest pain and negative troponin it would be interesting to compare EKG from the previous one. If one is not done this morning I will order another one. However simple explanation for the EKG changes is that it is due to hypoxemia or hypokalemia. I will DC therapeutic dose Lovenox and keep DVT prophylaxis. once respiratory status has improved probably she will need outpatient stress test. I will add low-dose aspirin. due to severe hypoxemia we will not give beta blocke at this time. I also noted that she is started on oral steroids. She will be switched to IV Solu-Medrol 60 every 8. Continue Levaquin 750. magnesium and potassium were low and supplemented. Repeat BMP and magnesium in the morning. 09/17 echocardiogram showed normal cardiac ejection fraction about 65% with diastolic dysfunction and no significant valvular abnormality. No wall motion abnormality either. Potassium and magnesium were corrected. Echocardiogram also so showed that ascending aorta is 4 cm. We will order CT chest to further evaluate it and see if she has aneurysm. - Constitutional Vitals: Temp Pulse Resp BP Pulse Ox 98 F 63 18 113/78 94 09/17/16 06:59 09/17/16 06:59 09/17/16 06:59 09/17/16 06:59 09/17/16 06:59 General appearance: Present: A&O X 3, pleasant, no acute distress - Head Head exam: Present: atraumatic, normocephalic - Eye Eye exam: Present: PERRL, conjuntiva pink, sclera anicteric Pupils: Present: PERRL - Neck Neck exam general surgery: Present: supple, trachea midline. Absent: lymphadenopathy - Respiratory Respiratory exam: Present: CTAB. Absent: accessory muscle use, rales, rhonchi, wheezes - Cardiovascular Cardiovascular exam: Present: RRR, +S1, +S2. Absent: diastolic murmur, gallop, rubs, systolic murmur - GI/Abdominal GI/Abdominal exam: Present: normal bowel sounds, soft, no peritoneal signs. Absent: distended, tenderness - Extremities Exam Extremities exam: Present: warm, radial pulses palpable and symetrical. Absent : calf tenderness, cyanotic, pedal edema - Neurological Exam Neurological exam: Present: CN II-XII intact, oriented X3, no focal deficits. Absent: pronater drift, facial droop, speech deficit - Skin Skin exam: Present: dry, intact Internal Medicine: Result - Labs CBC & Chem 7: 09/16/16 05:27 09/18/16 02:43 Labs: BMP 09/17/16 02:35 Sodium 140 Potassium 4.3 D Chloride 102 Carbon Dioxide 28 BUN 18 Creatinine 0.87 Glucose 126 H Calcium 9.8 Liver Function 09/17/16 Range/Units 02:35 Total Bilirubin 0.3 (0.2-1.2) mg/dL AST 17 (5-34) Units/L ALT 7 (0-55) Units/L Alkaline Phosphatase 93 (38-126) Units/L Albumin 3.1 L (3.5-5.0) g/dL - ABG Interpretation ABG results: ABG ABG pH 7.44 pH Units (7.32-7.45) 09/15/16 18:52 ABG pCO2 50 mmHg (35-45) H 09/15/16 18:52 ABG pO2 57 mmHg (85-104) L 09/15/16 18:52 ABG O2 Saturation 90 % (95-98) L 09/15/16 18:52 - Impressions Impressions Echocardiogram 09/16/16 21:09 Impressions: LVEF 60%. Normal left ventricular size and systolic function. There is evidence of mild diastolic dysfunction of the left ventricle. Normal right ventricular size and function. Mild mitral regurgitation. Mild pulmonic regurgitation. No pulmonary hypertension. The ascending aorta is dilated measuring 4.0 cm. Consider alternative imaging such as CT for more definitive evaluation if appropriate. Left Ventricular Wall Motion: Rest Echo Findings All wall segments showed normal motion. Findings: Study Quality * Technically adequate exam. ECG Findings * Normal sinus rhythm. Left Ventricle * LVEF 60%. * Normal LV chamber size, wall thickness and function. * Mild left ventricular diastolic dysfunction. Aorta * Normally sized aortic root. * Ascending aorta is dilated, measuring 4.0cm. Aortic Valve * Trileaflet aortic valve. * Normal aortic valve structure. * No aortic stenosis. * No aortic regurgitation. Mitral Valve * Normal mitral valve structure. * No mitral stenosis. * Mild mitral regurgitation. Tricuspid Valve * Tricuspid valve not well visualized. * Trace tricuspid regurgitation. * Estimated RA pressure is 8 mmHg. * Estimated RVSP is 17 mmHg. * No pulmonary hypertension. Pulmonic Valve * Pulmonic valve is not well visualized. * No pulmonic stenosis. * Mild pulmonic regurgitation. Pulmonary Artery * Pulmonary artery not well visualized. Right Ventricle * Normal right ventricular structure and function. Left Atrium * Moderately dilated left atrium. Right Atrium * Normal right atrial size. Pericardium * There is no pericardial effusion present. Interatrial Septum * No evidence of PFO by color Doppler. IVC * The IVC is not dilated. * < 50% respiratory change. Consult Discharge Plan - Plan Referrals: Michael Graham MD [Primary Care Provider] - 09/24/16 2:15 pm
[2016-09-17] MEDS ORDERED: Nicotine 14 MG PATCH.TD24 TD SCH (09:00)
[2016-09-17] MEDS: Lisinopril 20 MG TABLET PO SCH (10:05)
[2016-09-17] MEDS: Nicotine 14 MG PATCH.TD24 TD SCH (10:05)
[2016-09-17] MEDS: Levofloxacin 750 MG/150 ML 750 MG/150 ML BAG IVPB SCH (10:06)
[2016-09-17] MEDS: Furosemide 20 MG/2 ML VIAL IVP SCH (10:07)
--- NOTE | 2016-09-17 16:02 | Electrocardiograph Report ---
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
[2016-09-18] MEDS: methylPREDNISolone 125 MG/2 ML VIAL IVP SCH ×2 (01:02→09:32)
[2016-09-18 04:00] LABS: Alanine Aminotransferase 6 Units/L (0-55); Albumin/Globulin Ratio 0.8 (1.1-2.2); Alkaline Phosphatase 79 Units/L (38-126); Aspartate Amino Transferase 10 Units/L (5-34); BUN/Creatinine Ratio 34 (6-26); Blood Urea Nitrogen 28 mg/dL (7-20); Calcium 9.7 mg/dL (8.6-10.8); Carbon Dioxide 28 mEq/L (19-29); Chloride 101 mEq/L (98-109); Glucose 159 mg/dL (70-99); Magnesium 1.7 mg/dL (1.6-2.6); Osmolality,Calculated 299 (280-300); Potassium 3.9 mEq/L (3.5-4.5); Sodium 140 mEq/L (136-145); eGFR For African Americans > 60 (> 60); eGFR For Non-African Americans > 60 (> 60)
[2016-09-18 04:12] LABS: Bilirubin,Total < 0.3 mg/dL (0.2-1.2)
[2016-09-18] MEDS: Ipratropium/Albuterol Neb 3 ML IH SCH ×2 (04:21→10:24)
[2016-09-18] MEDS: *HR* Enoxaparin 40 MG/0.4 ML SYRINGE SQ SCH (06:17)
[2016-09-18 06:33] VITALS: BP 113/77
[2016-09-18] MEDS: Furosemide 20 MG/2 ML VIAL IVP SCH (09:32)
[2016-09-18] MEDS: Lisinopril 20 MG TABLET PO SCH (09:32)
[2016-09-18] MEDS: Levofloxacin 750 MG/150 ML 750 MG/150 ML BAG IVPB SCH (09:33)
[2016-09-18] MEDS: Nicotine 14 MG PATCH.TD24 TD SCH (09:33)
--- NOTE | 2016-09-18 14:12 | Discharge Summary ---
Date of Encounter: 09/18/16 Time of Encounter: 13:47 - Discharge Diagnosis (1) Acute on chronic respiratory failure with hypoxemia Priority: Primary Status: Acute (2) Acute electrocardiogram changes Priority: Secondary Status: Acute (3) Acute exacerbation of chronic obstructive airways disease Priority: Primary Status: Acute (4) DVT prophylaxis Priority: Secondary Status: Acute (5) Pneumonia Priority: Primary Status: Acute Qualifiers: Pneumonia type: due to unspecified organism Laterality: left Lung location: lower lobe of lung Qualified Code(s): J18.1 - Lobar pneumonia, unspecified organism (6) Hypomagnesemia Priority: Secondary Status: Acute (7) Hypokalemia Priority: Secondary Status: Acute - Discharge Medications Prescriptions: Ipratropium/Albuterol Neb [Duoneb] 3 ml IH QIDR #120 inh levoFLOXacin [Levofloxacin] 500 mg PO DAILY #7 predniSONE [PredniSONE] 10 mg PO DAILY #70 tablet Home Medications: Albuterol Sulfate [Albuterol Inhaler] 2 puff IH Q4H PRN 09/15/16 [History] Atenolol [Tenormin] 50 mg PO DAILY 09/15/16 [History] Buprenorphine HCl/Naloxone HCl [Suboxone 8 mg-2 mg Sl Film] 1 each SL BID [History] Cyclobenzaprine [Flexeril] 10 mg PO TID PRN 09/15/16 [History] Furosemide [Lasix] 20 mg PO DAILY 09/15/16 [History] Lisinopril [Zestril] 20 mg PO DAILY 09/15/16 [History] Acetaminophen [Tylenol] 650 mg PO Q6HR PRN tab 09/18/16 [Rx] Ipratropium/Albuterol Neb [Duoneb] 3 ml IH QIDR #120 inh 09/18/16 [Rx] Nicotine Patch [Nicoderm] 14 mg TD DAILY 09/18/16 [Rx] levoFLOXacin [Levofloxacin] 500 mg PO DAILY #7 09/18/16 [Rx] predniSONE [PredniSONE] 10 mg PO DAILY #70 tablet 09/18/16 [Rx] Allergies/Adverse Reactions: Allergies No Known Allergies Allergy (Verified 09/15/16 18:19) Procedures/tests Complete & Pending: Procedures Performed prior 72 hours Category Date Time Status CT chest w con [CT] Routine Cat Scan 09/17/16 09:15 Completed EKG [ECG 12 lead ECG] [ECG] Routine Y 09/16/16 08:12 Completed EV echocardiogram Routine Y 09/16/16 21:09 Completed Date of admission: 09/15/16 20:52 Primary care physician: Michael Graham MD Consults: 09/15/16 21:07 Consult to Cardiology [CONS] Routine Comment: Consulting Provider: Cardiology Belen Reason for Consult: 56F with hypoxia, ekg changes with t wave inversions in lateral leads. Call Completed: No Discharging clinician: Bernardo Alexander Anticipated date of discharge: 09/18/16 - Patient Status Disposition: Home, Self-Care Condition: Fair Overall status at discharge: patient is progressing back to baseline - Discharge Instructions Follow Up With: Gunjan Moser MD [Partnered Physician] - 10/01/16 8:15 am Michael Graham MD [Primary Care Provider] - 09/24/16 2:15 pm - Diet and Activity Activity: resume usual activities as tolerated Diet: advance to your usual diet (Used 2-3 L of oxygen continuous) Hospital course: Ms. Quiles is a 56 year old female with hypertension, COPD, hepatitis C, presented with complaints of shortness of breath and productive cough. she is diagnosed with left lower lobe pneumonia acute exacerbation of COPD, acute on chronic respiratory failure with hypoxemia and abnormal EKG. In absence of chest pain and negative troponin was very unlikely to have any acute coronary event. Cardiology was consult consulted. EKG changes were due to hypoxemia and hypokalemia. echocardiogram showed normal cardiac ejection fraction about 65 % with diastolic dysfunction and no significant valvular abnormality. No wall motion abnormality either. Potassium and magnesium were corrected. Echocardiogram also so showed that ascending aorta is [address] chest failed to show any aneurysm. Patient plans to be continued on Levaquin and steroids and nebulizer. She is still needing some oxygen. She was offered to stay for another couple of days however she declined and would rather like to go home. She is advised to return in case his symptoms Worsen. - Time Spent with Patient Total time spent providing and/or coordinating discharge services: Greater than 30 minutes - Constitutional Vitals: Temp Pulse Resp BP Pulse Ox 97.5 F L 59 18 113/77 91 09/18/16 06:29 09/18/16 06:29 09/18/16 10:24 09/18/16 06:29 09/18/16 10:24 General appearance: Present: A&O X 3, pleasant, no acute distress - Head Head exam: Present: atraumatic, normocephalic - Eye Eye exam: Present: PERRL, conjuntiva pink, sclera anicteric Pupils: Present: PERRL - Neck Neck exam general surgery: Present: supple, trachea midline. Absent: lymphadenopathy - Respiratory Respiratory exam: Present: CTAB. Absent: accessory muscle use, rales, rhonchi, wheezes - Cardiovascular Cardiovascular exam: Present: RRR, +S1, +S2. Absent: diastolic murmur, gallop, rubs, systolic murmur - GI/Abdominal GI/Abdominal exam: Present: normal bowel sounds, soft, no peritoneal signs. Absent: distended, tenderness - Extremities Exam Extremities exam: Present: warm, radial pulses palpable and symetrical. Absent : calf tenderness, cyanotic, pedal edema - Neurological Exam Neurological exam: Present: CN II-XII intact, oriented X3, no focal deficits. Absent: pronater drift, facial droop, speech deficit - Skin Skin exam: Present: dry, intact
[2016-09-19] MEDS ORDERED: levoFLOXacin 750 MG TABLET PO SCH (09:00)
== END 2016-09-18 15:39 | disposition home or self-care (01) | DRG 140 ==
LOC: EMEROO 17:56 → 2NENU 17:56
PROVIDERS: ADMIT Family Medicine; ATTEND Internal Medicine

== ENCOUNTER 2016-11-03 20:25 | Inpatient (IN) ==
[2016-11-03] MEDS ORDERED: methylPREDNISolone 125 MG/2 ML VIAL IVP ONE (20:31)
[2016-11-03] MEDS ORDERED: Ipratropium/Albuterol Neb 3 ML IH ONE (20:31)
--- NOTE | 2016-11-03 20:41 | Emergency Department Note ---
Disposition Clinical Impression: Acute exacerbation of chronic obstructive pulmonary disease (COPD), Hypoxia, Hypokalemia Disposition: Admitted As Inpatient Condition: Fair Time of Disposition: 23:35 SOB HPI - General Chief Complaint: ED Shortness of Breath/Dyspnea Stated Complaint: bety hx copd Time Seen by Provider: 11/03/16 20:31 Source: patient Limitations: no limitations Nursing Notes Reviewed: Yes Vital Signs Reviewed: Yes - History of Present Illness Mrs. Quiles, a 56-year-old female, presents from home for evaluation of dyspnea. Onset 2-3 days ago and progressive. Patient has history of COPD with as needed oxygen at home. No home nebulizers. She recently moved and had difficulty finding her oxygen supply that has not been using her home oxygen. She has associated fever, chills, new productive cough. PMH: Hypertension, COPD with as needed oxygen. No history of CAD, ACS, hyperlipidemia, diabetes. - Related Data Home Medications Medication Instructions Recorded Confirmed Albuterol Sulfate [Albuterol 2 puff IH Q4H PRN 09/15/16 11/03/16 Inhaler] Atenolol [Tenormin] 50 mg PO DAILY 09/15/16 11/03/16 Buprenorphine HCl/Naloxone HCl 1 each SL BID 09/15/16 11/03/16 [Suboxone 8 mg-2 mg Sl Film] Lisinopril [Zestril] 20 mg PO DAILY 09/15/16 11/03/16 Previous Rx's Medication Instructions Recorded Acetaminophen [Tylenol] 650 mg PO Q6HR PRN tab 09/18/16 Nicotine Patch [Nicoderm] 14 mg TD DAILY 09/18/16 Allergies Allergy/AdvReac Type Severity Reaction Status Date / Time No Known Allergies Allergy Verified 09/15/16 18:19 All systems ED: reviewed and negative except as stated. Review of Systems: As Per HPI Past Medical History - Past Medical History Medical history: Reports: COPD, hepatitis, hypertension Surgical history: Reports: cholecystectomy, hysterectomy Psychiatric history: Reports: no psych history - Social History Smoking Status: Current every day smoker Smokeless Tobacco Status: No Alcohol use: Reports: none Drug use: Reports: none Physical Exam Vital Signs Reviewed - patient is hypoxic, tachypneic, tachycardic General: Patient is alert, oriented, and in acute respiratory distress as evidenced by her tachypnea, many formal breathing, accessory muscle use, and diaphoresis. HEENT: No facial asymmetry. Head is normocephalic and atraumatic. Oral mucosa tachycardia. Trachea midline. Cardiovascular: Heart regular rate and rhythm without clicks, rubs, gallops, or murmurs. No JVD. PMI nondisplaced. No pedal edema. Bilateral Respiratory: Symmetric chest rise with poor respiratory effort. Prolonged expiratory phase. Bilateral breath sounds are diminished without wheezing, crackles, or rhonchi. Abdomen: Bowel sounds present normoactive x-4 quadrants. Abdomen is soft, nondistended, and nontender. No organomegaly noted. Psych: Patient's affect is appropriate for situation. - General Limitations: no limitations Course Course Narrative: Patient presents for evaluation of dyspnea onset and progressive for the past 2- 3 days. She has associated fever, chills. She arrives in respiratory distress- intake vitals in triage she was hypoxic at 66%. On arrival to the ER room, she had poor waveform and we were finally able to get a good waveform with the reading of 88% on 6 L nasal cannula. Edges lung sounds do not have wheezing however suspect because she is closed enough to not wheeze in that she is not moving air. His time, I clinically suspect acute exacerbation of COPD. Patient's air movement improved on a triple dose of DuoNeb's. She is now wheezing. Her breathing has increased slightly. We placed her in a short run of BiPAP which she tolerated well and was sleeping. I do not believe that she needs BiPAP long-term for admission. Palpitations labwork as return concerning for hypo-kalemia. We will provide 40 mEq potassium by mouth. Chest x-ray is not concerning for any pulmonary infection. Patient received 125 mg side Medrol and appear Levaquin antibiotic coverage. Next I spoke with the admitting hospitalist, Dr. Bustos, who agrees to accept the patient. She requested an additional 40 mEq potassium by mouth which I will provide here in the emergency department. Chest X-Ray 11/03/16 20:32 IMPRESSION: No acute cardiopulmonary disease. D/ / Isai Bajwa MD / Isai Bajwa MD Interpreting Provider: Isai Bajwa MD Vital Signs Temperature 98.8 F 11/03/16 20:26 Pulse Rate 58 11/03/16 20:26 Respiratory Rate 32 11/03/16 20:26 Blood Pressure 167/113 11/03/16 20:26 O2 Sat by Pulse Oximetry 66 11/03/16 20:26 Temperature 98.8 F 11/03/16 20:26 Pulse Rate 64 11/03/16 22:26 Respiratory Rate 21 11/03/16 22:26 Blood Pressure 128/92 11/03/16 22:26 O2 Sat by Pulse Oximetry 90 11/03/16 22:26 Oxygen Delivery Oxygen Delivery Bipap Shortness of Breath/Dyspnea - Lab Data Result diagrams: 11/03/16 20:45 11/03/16 20:45 Lab Results 11/03/16 11/03/16 11/03/16 Range/Units 20:45 20:45 20:45 WBC 16.2 H (4.3-11.1) K/mcL RBC 5.57 H (3.82-4.97) M/mcL Hgb 16.1 H (11.5-15.4) g/dL Hct 49.0 H (35.3-44.9) % MCV 88.0 (83.0-100.0) fL MCH 28.9 (28.0-33.3) pg MCHC 32.9 (31.6-35.5) g/dL RDW 13.0 (11.5-14.5) % Plt Count 312 (140-400) K/mcL MPV 10.3 (9.4-12.4) fL Immature Gran % 0.4 (0-4) % Seg Neutrophils % 81.4 % Lymphocytes % 8.6 % Monocytes % 9.3 % Eosinophils % 0.0 % Basophils % 0.3 % Neutrophils # 13.2 H (1.6-8.9) K/mcL Lymphocytes # 1.4 (0.6-4.6) K/mcL Monocytes # 1.5 H (0.0-1.3) K/mcL Eosinophils # 0.0 (0.0-0.6) K/mcL Basophils # 0.1 (0.0-0.2) K/mcL Sodium 139 (136-145) mEq/L Potassium 2.7 L (3.5-4.5) mEq/L Chloride 92 L (98-109) mEq/L Carbon Dioxide 32 H (19-29) mEq/L BUN 14 (7-20) mg/dL Creatinine 0.73 (0.57-1.11) mg/dL Est GFR ( Amer) > 60 (> 60) Est GFR (Non-Af Amer) > 60 (> 60) BUN/Creatinine Ratio 19 (6-26) Glucose 142 H (70-99) mg/dL Calculated Osmolality 291 (280-300) Lactic Acid 1.5 (0.5-2.2) mmol/L Calcium 10.0 (8.6-10.8) mg/dL Troponin I (0-0.03) ng/mL B-Natriuretic Peptide (0-100) pg/mL 11/03/16 11/03/16 Range/Units 20:45 20:45 WBC (4.3-11.1) K/mcL RBC (3.82-4.97) M/mcL Hgb (11.5-15.4) g/dL Hct (35.3-44.9) % MCV (83.0-100.0) fL MCH (28.0-33.3) pg MCHC (31.6-35.5) g/dL RDW (11.5-14.5) % Plt Count (140-400) K/mcL MPV (9.4-12.4) fL Immature Gran % (0-4) % Seg Neutrophils % % Lymphocytes % % Monocytes % % Eosinophils % % Basophils % % Neutrophils # (1.6-8.9) K/mcL Lymphocytes # (0.6-4.6) K/mcL Monocytes # (0.0-1.3) K/mcL Eosinophils # (0.0-0.6) K/mcL Basophils # (0.0-0.2) K/mcL Sodium (136-145) mEq/L Potassium (3.5-4.5) mEq/L Chloride (98-109) mEq/L Carbon Dioxide (19-29) mEq/L BUN (7-20) mg/dL Creatinine (0.57-1.11) mg/dL Est GFR ( Amer) (> 60) Est GFR (Non-Af Amer) (> 60) BUN/Creatinine Ratio (6-26) Glucose (70-99) mg/dL Calculated Osmolality (280-300) Lactic Acid (0.5-2.2) mmol/L Calcium (8.6-10.8) mg/dL Troponin I 0.00 (0-0.03) ng/mL B-Natriuretic Peptide 182 H (0-100) pg/mL - EKG Data EKG attestation: Yes I reviewed and interpreted this EKG. EKG results narrative: EKG dated 11/03/16 at 20:35 interpreted as sinus rhythm with rate of 61. Normal intervals. Normal axis. T-wave inversions in septal leads which are present on compared to previous EKG dated 09/16/2016. Otherwise, nonspecific ST-T changes. No acute ischemic changes compared to previous EKG dated 09/16/2016. Attestation Statement - Attestation Attestation: I, Tang Mcgraw DO, examined this patient [id number] and my medical decision-making was reviewed with Dr. Hernando Stark, Resident Physician. I agree with the documented findings, disposition and treatment plan as described except to the extent set forth below. Please see my progress notes for details. 56-year-old female presents to the emergency room from home for evaluation of shortness of breath and difficulty with breathing. She has a long-standing history of COPD with emphysema. She has not had her home oxygen for the last 2 weeks. She typically uses 3 L of oxygen at night. Patient denies any fevers or chills nausea vomiting diarrhea headache or vision change. She has had a productive cough has transitioned to yellow-green sputum. She continues to smoke. Denies any cardiac history at this time. Physical exam shows a thin appearing female in some mild respiratory distress on presentation with wheezing and accessory muscle use. Patient given an immediate albuterol and ipratropium nebulizer treatments as well as steroids. BiPAP was brought to the bedside considering she is breathing 30-40 times a minute. Patient's heart rate was slightly elevated initially and then came down into the 50s to 60s after medications were given. Labs chest x-ray all reviewed and are otherwise stable with no acute signs of pneumonia. Prophylactic antibiotic started the Levaquin and steroids were given. Patient is feeling better this time of BiPAP applied. Pulse ox breathing and heart rate of all stabilized. Admission process to be completed for failed outpatient treatment of COPD and emphysema and cardiac evaluation. Initial EKG and troponin are otherwise stable patient will be admitted at this time. See detailed documentation of the physical exam , medical intervention, medical decision-making, consultation for admission and the resident physician's note
[2016-11-03] MEDS ORDERED: *HR* LORazepam 2 MG/ML VIAL IVP ONE (21:00)
[2016-11-03 21:08] LABS: Basophils # 0.1 K/mcL (0.0-0.2); Basophils % 0.3 %; Hemoglobin 16.1 g/dL (11.5-15.4); Immature Granulocytes % 0.4 % (0-4); Lymphocytes # 1.4 K/mcL (0.6-4.6); Lymphocytes % 8.6 %; Mean Corpuscular HGB Conc 32.9 g/dL (31.6-35.5); Mean Corpuscular Hemoglobin 28.9 pg (28.0-33.3); Mean Platelet Volume 10.3 fL (9.4-12.4); Monocytes # 1.5 K/mcL (0.0-1.3); Monocytes % 9.3 %; Neutrophils # 13.2 K/mcL (1.6-8.9); Platelet Count 312 K/mcL (140-400); Red Blood Count 5.57 M/mcL (3.82-4.97); Segmented Neutrophils % 81.4 %
[2016-11-03 21:21] LABS: BUN/Creatinine Ratio 19 (6-26); Blood Urea Nitrogen 14 mg/dL (7-20); Carbon Dioxide 32 mEq/L (19-29); Chloride 92 mEq/L (98-109); Glucose 142 mg/dL (70-99); Osmolality,Calculated 291 (280-300); Potassium 2.7 mEq/L (3.5-4.5); Sodium 139 mEq/L (136-145); eGFR For African Americans > 60 (> 60); eGFR For Non-African Americans > 60 (> 60)
[2016-11-03] MEDS ORDERED: Levofloxacin 750 MG/150 ML 750 MG/150 ML BAG IVPB ONE (21:35)
[2016-11-04] MEDS ORDERED: *HR* Morphine 2 MG/ML SYRINGE IVP PRN (00:49)
[2016-11-04] MEDS ORDERED: Naloxone 0.4 MG/ML INJ IVP PRN (00:49)
[2016-11-04] MEDS ORDERED: *HR* HYDROcodone/Acet 5/325 mg TABLET PO PRN (00:49)
[2016-11-04] MEDS ORDERED: Ondansetron 4 MG/2 ML VIAL IVP PRN (00:49)
[2016-11-04] MEDS ORDERED: Albuterol 2.5 MG/3 ML NEBULIZER IH PRN (00:52)
[2016-11-04] MEDS ORDERED: 0.9 % Sodium Chloride 1,000 ML IVC ONE (00:52)
--- NOTE | 2016-11-04 00:56 | Internal Med History&Physical ---
Date of Encounter: 11/04/16 Time of Encounter: 00:56 Assessment and Plan (1) Acute exacerbation of chronic obstructive airways disease Current visit: Yes Status: Acute Continued nebs every 4hrs Albuterol every 2 when necessary Prednisone. Levaquin by mouth Patient needs oxygen qualification prior to discharge. (2) Hypokalemia Current visit: Yes Status: Acute Replace with 80 mg of potassium Check magnesium level Repeat chemistry a.m. (3) Hypertension Current visit: Yes Status: Chronic Continue home medications. Qualifiers: Hypertension type: essential hypertension Qualified Code(s): I10 - Essential (primary) hypertension (4) Hypoxia Current visit: Yes Status: Chronic Chronic resp failure not compliant with home oxygen Continue oxygen supplementation Oxygen qualification prior to discharge. Internal Medicine - H&P: HPI Chief complaint: Shortness of breath Admitted From: Home Plans for Post Hospital Care: Home History of present illness: Ms. Quiles is a 56 year old female with past medical history of known COPD on home oxygen, chronic respiratory failure on home oxygen, hypertension, tobacco abuse. She presented with history of worsening cough and change in sputum Color from clear to yellow, shortness of breath with exertion She reports being on home O2 but has been unable to obtain it since moving, she continues to smoke. She denies fever or chills, she denies CP, abdominal symptoms, no n/v/d, no neurologic symptoms She was hypoxic on presentation At time of review, she was sleeping comfortably and easily aroused Past Med Surg Social Fam HX - Past Medical History Medical history: COPD, hepatitis, hypertension Psychiatric history: no psych history - Past Surgical History Surgical History: cholecystectomy, hysterectomy - Social History Smoking Status: Current every day smoker Packs per day: 0.5 Smokeless Tobacco Status: No Alcohol use: none Drug use: none - Family History Father Living Status: Hx Family Cardiac Disorders: Yes Mother Living Status: Hx Family Respiratory Disorders: Yes (COPD) Hx Family Endocrine Disorder: Yes (DM) Internal Medicine - H&P: Meds Albuterol Sulfate [Albuterol Inhaler] 2 puff IH Q4H PRN 09/15/16 [History] Atenolol [Tenormin] 50 mg PO DAILY 09/15/16 [History] Lisinopril [Zestril] 20 mg PO DAILY 09/15/16 [History] Acetaminophen [Tylenol] 650 mg PO Q6HR PRN tab 09/18/16 [Rx] 3 Allergy/AdvReac Type Severity Reaction Status Date / Time No Known Allergies Allergy Verified 09/15/16 18:19 All Systems PM: A 10-system review of systems was performed and is negative for pertinent findings except as documented above in the HPI. - Constitutional Constitutional: no chills, no fever(s), no night sweats - EENT Eyes: no change in vision, no discharge, no pain, no photophobia Ears: no ear discharge, no ear pain, no tinnitus Nose, mouth and throat: no dysphagia, no nasal discharge, no neck pain, no sore throat - Cardiovascular Cardiovascular ROS IM: as per HPI - Respiratory Respiratory: as per HPI - Gastrointestinal Gastrointestinal: no abdominal pain, no diarrhea, no hematemesis, no hematochezia, no melena, no nausea, no vomiting - Genitourinary Genitourinary: no change in urinary stream, no dysuria, no flank pain, no hematuria - Musculoskeletal Musculoskeletal ROS IM: no numbness, no tingling - Integumentary Integumentary IM: no rash, no unusual bruising - Neurological Neurological ROS: no confusion, no convulsions, no focal weakness, no numbness, no tingling, no tremor(s) - Constitutional Vitals: Temp Pulse Resp BP Pulse Ox 98.1 F 64 19 119/88 89 11/03/16 23:56 11/04/16 00:35 11/03/16 23:56 11/03/16 23:56 11/03/16 23:56 General appearance: Present: A&O X 3, pleasant, no acute distress, answers questions appropriately - Head Head exam: Present: atraumatic, normocephalic - Eye Eye exam: Present: PERRL, conjuntiva pink, sclera anicteric Pupils: Present: PERRL - Neck Neck exam general surgery: Present: supple, trachea midline. Absent: lymphadenopathy - Respiratory Respiratory exam: Present: CTAB. Absent: accessory muscle use, rales, rhonchi, wheezes - Cardiovascular Cardiovascular exam: Present: RRR, +S1, +S2. Absent: diastolic murmur, gallop, rubs, systolic murmur - GI/Abdominal GI/Abdominal exam: Present: normal bowel sounds, soft, no peritoneal signs. Absent: distended, tenderness - Extremities Exam Extremities exam: Present: warm, radial pulses palpable and symmetrical. Absent : calf tenderness, cyanotic, pedal edema - Neurological Exam Neurological exam: Present: alert, CN II-XII intact, oriented X3, no focal deficits. Absent: pronater drift, facial droop, speech deficit - Skin Skin exam: Present: dry, intact Internal Med - H&P Results - Labs CBC & Chem 7: 11/04/16 01:23 11/04/16 01:23
[2016-11-04 01:34] LABS: Basophils % 0.1 %; Hematocrit 44.8 % (35.3-44.9); Hemoglobin 14.8 g/dL (11.5-15.4); Immature Granulocytes % 0.8 % (0-4); Immature Platelets 5.4 % (1.1-6.1); Lymphocytes # 0.6 K/mcL (0.6-4.6); Lymphocytes % 4.2 %; Mean Corpuscular Hemoglobin 28.8 pg (28.0-33.3); Mean Corpuscular Volume 87.2 fL (83.0-100.0); Mean Platelet Volume 10.3 fL (9.4-12.4); Monocytes # 0.5 K/mcL (0.0-1.3); Monocytes % 3.8 %; Neutrophils # 12.8 K/mcL (1.6-8.9); Platelet Count 279 K/mcL (140-400); Red Blood Count 5.14 M/mcL (3.82-4.97); Red Cell Distribution Width 13.1 % (11.5-14.5); Segmented Neutrophils % 91.1 %
[2016-11-04 01:48] LABS: BUN/Creatinine Ratio 24 (6-26); Blood Urea Nitrogen 16 mg/dL (7-20); Calcium 9.5 mg/dL (8.6-10.8); Carbon Dioxide 29 mEq/L (19-29); Chloride 94 mEq/L (98-109); Glucose 154 mg/dL (70-99); Magnesium 1.7 mg/dL (1.6-2.6); Osmolality,Calculated 286 (280-300); Potassium 3.3 mEq/L (3.5-4.5); Sodium 136 mEq/L (136-145); eGFR For African Americans > 60 (> 60); eGFR For Non-African Americans > 60 (> 60)
[2016-11-04] MEDS: Ipratropium/Albuterol Neb 3 ML IH SCH ×5 (04:55→20:10)
[2016-11-04] MEDS: *HR* Enoxaparin 40 MG/0.4 ML SYRINGE SQ SCH (05:56)
[2016-11-04] MEDS: Lisinopril 20 MG TABLET PO SCH (07:44)
[2016-11-04] MEDS: Acetaminophen 325 MG TABLET PO PRN ×3 (07:44→22:29)
[2016-11-04] MEDS: levoFLOXacin 500 MG TABLET PO SCH (07:45)
[2016-11-04] MEDS: predniSONE 20 MG TABLET PO SCH (07:45)
--- NOTE | 2016-11-04 10:09 | Electrocardiograph Report ---
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
[2016-11-04] MEDS ORDERED: Potassium Chloride Elixir 20 MEQ/15 ML UDC PO ONE (11:02)
--- NOTE | 2016-11-04 11:05 | Internal Med Progress Note ---
Date of Encounter: 11/04/16 Time of Encounter: 11:03 - Assessment and plan (1) Tobacco abuse Current Visit: Yes Status: Acute Assessment and plan: I have provided smoking cessation counseling. She appears to be determined to quit smoking. (2) Acute exacerbation of chronic obstructive airways disease Current Visit: Yes Status: Acute Assessment and plan: IV steroids. Inhaled bronchodilators. Continue with Levaquin. (3) Hypokalemia Current Visit: Yes Status: Acute Assessment and plan: Replete with oral potassium. Check potassium and magnesium tomorrow. (4) DVT prophylaxis Current Visit: No Status: Acute Assessment and plan: Subcutaneous Lovenox. (5) Acute on chronic respiratory failure with hypoxemia Current Visit: No Status: Acute Assessment and plan: Oxygen by nasal cannula to maintain saturation above 92%. We will requalify her for home oxygen prior to discharge. - Subjective Interval history: Patient reports significant improvement in shortness of breath over the last 24 hours since being in the hospital and receiving treatment with breathing treatments and IV steroids. She reports associated cough minimally productive of clear sputum. Denies chest pain or fever. - Constitutional Vitals: Temp Pulse Resp BP Pulse Ox 98.1 F 57 16 116/85 97 11/04/16 07:32 11/04/16 07:50 11/04/16 08:00 11/04/16 07:32 11/04/16 08:00 General appearance: Present: A&O X 3, pleasant, no acute distress, answers questions appropriately - Eye Eye exam: Present: PERRL, conjuntiva pink, sclera anicteric Pupils: Present: PERRL - Respiratory Respiratory exam: Present: decreased breath sounds, CTAB. Absent: accessory muscle use, rales, rhonchi, wheezes - Cardiovascular Cardiovascular exam: Present: RRR, +S1, +S2. Absent: diastolic murmur, gallop, rubs, systolic murmur - GI/Abdominal GI/Abdominal exam: Present: normal bowel sounds, soft, no peritoneal signs. Absent: distended, tenderness - Extremities Exam Extremities exam: Present: warm, radial pulses palpable and symmetrical. Absent : calf tenderness, cyanotic, pedal edema - Skin Skin exam: Present: dry, intact Internal Medicine: Result - Labs CBC & Chem 7: 11/04/16 01:23 11/04/16 01:23 Consult Discharge Plan - Plan Referrals: Michael Graham MD [Primary Care Provider] - 11/13/16 10:15 am
[2016-11-04] MEDS ORDERED: Nicotine 14 MG PATCH.TD24 TD PRN (15:46)
[2016-11-05] MEDS: Ipratropium/Albuterol Neb 3 ML IH SCH ×7 (00:46→23:13)
[2016-11-05 05:01] LABS: Basophils % 0.1 %; Eosinophils % 0.1 %; Hematocrit 42.4 % (35.3-44.9); Hemoglobin 13.9 g/dL (11.5-15.4); Immature Granulocytes % 0.6 % (0-4); Lymphocytes # 2.2 K/mcL (0.6-4.6); Lymphocytes % 14.3 %; Mean Corpuscular HGB Conc 32.8 g/dL (31.6-35.5); Mean Corpuscular Hemoglobin 29.5 pg (28.0-33.3); Mean Platelet Volume 10.6 fL (9.4-12.4); Monocytes # 1.4 K/mcL (0.0-1.3); Monocytes % 8.7 %; Neutrophils # 11.9 K/mcL (1.6-8.9); Platelet Count 259 K/mcL (140-400); Red Blood Count 4.71 M/mcL (3.82-4.97); Red Cell Distribution Width 13.2 % (11.5-14.5); Segmented Neutrophils % 76.2 %
[2016-11-05 05:17] LABS: BUN/Creatinine Ratio 41 (6-26); Calcium 9.4 mg/dL (8.6-10.8); Carbon Dioxide 29 mEq/L (19-29); Chloride 103 mEq/L (98-109); Glucose 100 mg/dL (70-99); Osmolality,Calculated 300 (280-300); Sodium 142 mEq/L (136-145); eGFR For African Americans > 60 (> 60); eGFR For Non-African Americans > 60 (> 60)
[2016-11-05] MEDS: *HR* Enoxaparin 40 MG/0.4 ML SYRINGE SQ SCH (05:17)
[2016-11-05 05:46] LABS: Blood Urea Nitrogen 29 mg/dL (7-20); Potassium 3.4 mEq/L (3.5-4.5)
[2016-11-05] MEDS: predniSONE 20 MG TABLET PO SCH (08:21)
[2016-11-05] MEDS: levoFLOXacin 500 MG TABLET PO SCH (08:21)
[2016-11-05] MEDS: Lisinopril 20 MG TABLET PO SCH (08:22)
--- NOTE | 2016-11-05 09:18 | Internal Med Progress Note ---
<Paige Mendosa - Last Filed: 11/05/16 16:57> Date of Encounter: 11/05/16 Time of Encounter: 10:45 - Assessment and plan (1) Acute on chronic respiratory failure with hypoxemia Current Visit: No Status: Acute Assessment and plan: Hx of COPD managed at home with oxygen as needed and albuterol only. Currently on DuoNebs. Plan: -Oxygen by nasal cannula to maintain saturation above 92%. -We will requalify her for home oxygen prior to discharge - BC NG x2 day - Duonebs and Albuterol (2) Acute exacerbation of chronic obstructive pulmonary disease (COPD) Current Visit: Yes Status: Acute Assessment and plan: Hx of COPD on albuterol and oxygen as needed at home. CXR no acute process. Previously on 5L NC currently on 3L NC at 96%. Will continue to wean as tolerated. Plan: - Levoquin added, increase white count and neutrophils - prednisone 40mg IV PO daily (3) Hypokalemia Current Visit: Yes Status: Acute Assessment and plan: Initially Potassium = 2.7. Currently Potassium 3.4. Given 40mg of Elixar today. Will recheck tomorrow. (4) Tobacco abuse Current Visit: Yes Status: Acute Assessment and plan: Patient states she has smoked for about 30-40 years one pack per day. She says she is willing to quit. Placed on nicotine patch 14mg daily. Patient will be sent with nicotine patches. (5) DVT prophylaxis Current Visit: No Status: Acute Assessment and plan: Subcutaneous Lovenox. - Subjective Interval history: Patient is a 56-year-old female with a past medical history of COPD on 3 L home oxygen presented to the ED with shortness of breath and admitted for COPD exacerbation secondary to upper respiratory infection. Today, patient is doing well on 3L NC. She said she is suppose to be on 3L NC 24 /7 at home but only wears it at night but this was newly added from previous hospital admission about 1 month ago and patient has not seen her PCP since. She had not had prior hospitalization. Patient denies coughing now but says a couple of days before admission was having a fever subjective, rhinorrhea and cough. - Constitutional Vitals: Temp Pulse Resp BP Pulse Ox 97.6 F 59 14 114/75 96 11/05/16 07:51 11/05/16 07:00 11/05/16 08:08 11/05/16 07:00 11/05/16 08:08 General appearance: Present: A&O X 3, pleasant, no acute distress, answers questions appropriately Exam: Constitutional: Alert, in no acute distress, well nourished, well developed. Head: Normocephalic, atraumatic, normal contour and symmetric, no masses, lesions or scars Heart: Normal, regular rate and rhythm, no murmurs Lungs: +bibasilar crackles, Clear to auscultation, no wheezes, rales, or rhonchi Abdomen: Soft, nondistended, nontender, and no masses palpable, bowel sounds present and normal, no guarding or rigidity. Extremities: No clubbing, cyanosis, or edema, radial pulse +2/4, capillary refill <2sec. Skin: Skin warm and dry, no lesions, no rashes, no jaundice Neurologic: Cranial nerves II through XII grossly intact, no focal deficits, strength within normal limits in all extremities Psych: Cooperative with exam, good eye contact, cognitive function intact, judgment good insight good, speech clear, thought process logical, and goal directed Internal Medicine: Result - Labs CBC & Chem 7: 11/05/16 04:37 11/05/16 04:37 Labs: Short CBC 11/05/16 Range/Units 04:37 WBC 15.7 H (4.3-11.1) K/mcL Hgb 13.9 (11.5-15.4) g/dL Hct 42.4 (35.3-44.9) % Plt Count 259 (140-400) K/mcL Neutrophils # 11.9 H (1.6-8.9) K/mcL BMP 11/05/16 04:37 Sodium 142 Potassium 3.4 L Chloride 103 Carbon Dioxide 29 BUN 29 H D Creatinine 0.71 Glucose 100 H Calcium 9.4 Consult Discharge Plan - Plan Referrals: Michael Graham MD [Primary Care Provider] - 11/13/16 10:15 am <Stephen Godfrey - Last Filed: 11/05/16 17:48> Date of Encounter: 11/05/16 - Assessment and plan (1) Tobacco abuse Current Visit: Yes Status: Acute (2) Acute exacerbation of chronic obstructive airways disease Current Visit: Yes Status: Acute (3) Hypokalemia Current Visit: Yes Status: Acute (4) DVT prophylaxis Current Visit: No Status: Acute (5) Acute on chronic respiratory failure with hypoxemia Current Visit: No Status: Acute - Constitutional Vitals: Temp Pulse Resp BP Pulse Ox 98.2 F 59 16 122/78 93 11/05/16 14:46 11/05/16 14:46 11/05/16 15:37 11/05/16 14:46 11/05/16 15:37 Internal Medicine: Result - Labs CBC & Chem 7: 11/05/16 04:37 11/05/16 04:37 Labs: Short CBC 11/05/16 Range/Units 04:37 WBC 15.7 H (4.3-11.1) K/mcL Hgb 13.9 (11.5-15.4) g/dL Hct 42.4 (35.3-44.9) % Plt Count 259 (140-400) K/mcL Neutrophils # 11.9 H (1.6-8.9) K/mcL BMP 11/05/16 04:37 Sodium 142 Potassium 3.4 L Chloride 103 Carbon Dioxide 29 BUN 29 H D Creatinine 0.71 Glucose 100 H Calcium 9.4 - Attending Attestation I examined this patient and my medical decision-making was reviewed with the Resident Physician. I agree with the documented findings, disposition and treatment plan as described except to the extent set forth below. Patient's shortness of breath has improved. Lung exam reveals bilateral diminished breath sounds, no wheezing or crackles I provided smoking cessation counseling. We will continue with prednisone and inhaled albuterol and Atrovent. Continue with oxygen by nasal cannula.
[2016-11-05] MEDS ORDERED: Potassium Chloride Elixir 20 MEQ/15 ML UDC PO ONE (09:38)
[2016-11-05] MEDS: Acetaminophen 325 MG TABLET PO PRN ×2 (12:06→19:44)
[2016-11-06] MEDS: Ipratropium/Albuterol Neb 3 ML IH SCH ×3 (03:30→11:08)
[2016-11-06] MEDS: *HR* Enoxaparin 40 MG/0.4 ML SYRINGE SQ SCH (05:57)
[2016-11-06 06:03] LABS: Basophils % 0.2 %; Eosinophils # 0.1 K/mcL (0.0-0.6); Eosinophils % 0.4 %; Hematocrit 42.2 % (35.3-44.9); Hemoglobin 13.3 g/dL (11.5-15.4); Immature Granulocytes % 0.9 % (0-4); Lymphocytes # 2.8 K/mcL (0.6-4.6); Lymphocytes % 24.1 %; Mean Corpuscular HGB Conc 31.5 g/dL (31.6-35.5); Mean Corpuscular Hemoglobin 28.5 pg (28.0-33.3); Mean Corpuscular Volume 90.6 fL (83.0-100.0); Mean Platelet Volume 10.1 fL (9.4-12.4); Monocytes # 1.1 K/mcL (0.0-1.3); Monocytes % 9.1 %; Neutrophils # 7.6 K/mcL (1.6-8.9); Platelet Count 262 K/mcL (140-400); Red Blood Count 4.66 M/mcL (3.82-4.97); Red Cell Distribution Width 13.3 % (11.5-14.5); Segmented Neutrophils % 65.3 %
[2016-11-06 06:16] LABS: BUN/Creatinine Ratio 41 (6-26); Blood Urea Nitrogen 27 mg/dL (7-20); Calcium 9.2 mg/dL (8.6-10.8); Carbon Dioxide 31 mEq/L (19-29); Chloride 107 mEq/L (98-109); Glucose 87 mg/dL (70-99); Osmolality,Calculated 302 (280-300); Potassium 3.7 mEq/L (3.5-4.5); Sodium 144 mEq/L (136-145); eGFR For African Americans > 60 (> 60); eGFR For Non-African Americans > 60 (> 60)
[2016-11-06 06:45] LABS: Platelet Estimate Normal (Normal); Reactive Lymphocytes Present (Not Present)
[2016-11-06] MEDS: predniSONE 20 MG TABLET PO SCH (09:18)
[2016-11-06] MEDS: Lisinopril 20 MG TABLET PO SCH (09:19)
[2016-11-06] MEDS: levoFLOXacin 500 MG TABLET PO SCH (09:19)
[2016-11-06] MEDS: Acetaminophen 325 MG TABLET PO PRN (09:24)
--- NOTE | 2016-11-06 10:13 | Discharge Summary ---
<Paige Mendosa - Last Filed: 11/06/16 16:56> Date of Encounter: 11/06/16 Time of Encounter: 10:05 - Discharge Diagnosis (1) Acute on chronic respiratory failure with hypoxemia Priority: Primary Status: Acute (2) Acute exacerbation of chronic obstructive pulmonary disease (COPD) Priority: Primary Status: Acute (3) Tobacco abuse Priority: Primary Status: Acute (4) Hypokalemia Priority: Primary Status: Acute (5) DVT prophylaxis Priority: Secondary Status: Acute - Discharge Medications Prescriptions: Ipratropium/Albuterol Neb [Duoneb] 3 ml IH Q6HR #120 inhsol levoFLOXacin [Levaquin] 500 mg PO DAILY #5 tablet Nicotine Patch [Nicoderm] 14 mg TD DAILY PRN #14 patch.[email or web address] PRN Reason: NICOTINE CRAVINGS predniSONE [PredniSONE] 20 mg PO DAILY #10 tablet Home Medications: Albuterol Sulfate [Albuterol Inhaler] 2 puff IH Q4H PRN 09/15/16 [History] Atenolol [Tenormin] 50 mg PO DAILY 09/15/16 [History] Lisinopril [Zestril] 20 mg PO DAILY 09/15/16 [History] Acetaminophen [Tylenol] 650 mg PO Q6HR PRN tab 09/18/16 [Rx] Ipratropium/Albuterol Neb [Duoneb] 3 ml IH Q6HR #120 inhsol 11/06/16 [Rx] Nicotine Patch [Nicoderm] 14 mg TD DAILY PRN #14 patch.[email or web address] 11/06/16 [Rx] levoFLOXacin [Levaquin] 500 mg PO DAILY #5 tablet 11/06/16 [Rx] predniSONE [PredniSONE] 20 mg PO DAILY #10 tablet 11/06/16 [Rx] Allergies/Adverse Reactions: 3 Allergy/AdvReac Type Severity Reaction Status Date / Time No Known Allergies Allergy Verified 09/15/16 18:19 Date of admission: 11/04/16 06:31 Primary care physician: Michael Graham MD - Patient Status Disposition: Home, Self-Care Condition: Good Functional capacity at discharge: independent ambulation Overall status at discharge: patient is progressing back to baseline - Discharge Instructions Instructions: Chronic Obstructive Pulmonary Disease (DC), COPD Exacerbation, 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 - Please wear your oxygen 24/7 and use DuoNebs every 6 hours. - Continue to take Levoquin (antibiotic) and Prednisone. - Return to the ED if symptoms worsen or new symptoms arise. - Diet and Activity Activity: increase activity as tolerated, wear oxygen at all times Diet: advance to your usual diet Hospital course: Ms. Quiles is a 56 year old female with a past medical history of COPD and recently put on oxygen 3 L NC 24/7 at home from previous discharge from hospital for COPD exacerbation in October presented to the ED with worsening shortness of breath after being unable to find her oxygen or albuterol in the move to her new home and was admitted for COPD exacerbation. Patient was initially placed on 6 L nasal cannula and weaned down to 3 L nasal cannula within the first 24 hours. Patient was placed on prednisone 40 mg by mouth and Levaquin. She had one episode of hypokalemia to 3.4 which was resolved and remained stable the remainder of the hospital stay. Social work was consulted and educated the patient on resources in the area fine oxygen supplies. Patient was discharged home on same home regimen of 3 L NC24/7 and was given DuoNeb treatments with a nebulizer. Patient was also discharged home with a prednisone taper and a 5 day course of Levaquin to finish treatment course. Patient was instructed to follow up with her primary care physician in one to 2 weeks. - Time Spent with Patient Total time spent providing and/or coordinating discharge services: - Constitutional Vitals: Temp Pulse Resp BP Pulse Ox 97.4 F L 63 18 159/108 98 11/06/16 06:33 11/06/16 06:33 11/06/16 07:57 11/06/16 06:33 11/06/16 07:57 General appearance: Present: A&O X 3, pleasant, no acute distress, answers questions appropriately Exam: Constitutional: Alert, in no acute distress, well nourished, well developed. Head: Normocephalic, atraumatic, normal contour and symmetric, no masses, lesions or scars Heart: Normal, regular rate and rhythm, no murmurs Lungs: +bibasilar crackles, Clear to auscultation, no wheezes, rales, or rhonchi Abdomen: Soft, nondistended, nontender, and no masses palpable, bowel sounds present and normal, no guarding or rigidity. Extremities: No clubbing, cyanosis, or edema, radial pulse +2/4, capillary refill <2sec. Skin: Skin warm and dry, no lesions, no rashes, no jaundice Neurologic: Cranial nerves II through XII grossly intact, no focal deficits, strength within normal limits in all extremities Psych: Cooperative with exam, good eye contact, cognitive function intact, judgment good insight good, speech clear, thought process logical, and goal directed <Stephen Godfrey - Last Filed: 11/06/16 18:07> Date of Encounter: 11/06/16 - Discharge Diagnosis (1) Tobacco abuse Status: Acute (2) Acute exacerbation of chronic obstructive airways disease Status: Acute (3) Hypokalemia Status: Acute (4) DVT prophylaxis Status: Acute (5) Acute on chronic respiratory failure with hypoxemia Status: Acute Date of admission: 11/04/16 06:31 Primary care physician: Michael Graham MD Hospital course: Ms. Quiles is a 56 year old female - Time Spent with Patient Total time spent providing and/or coordinating discharge services: - Constitutional Vitals: Temp Pulse Resp BP Pulse Ox 98.0 F 52 18 157/115 96 11/06/16 10:31 11/06/16 10:31 11/06/16 11:10 11/06/16 10:31 11/06/16 11:10 - Attending Attestation I examined this patient and my medical decision-making was reviewed with the Resident Physician. I agree with the documented findings, disposition and treatment plan as described except to the extent set forth below. On exam she is in no acute distress. Lung auscultation reveals clear breath sounds. I have provided extensive smoking cessation counseling. We will discharge her home with a short course of antibiotics and inhaled bronchodilators. She was advised to follow-up with PCP and will need a referral to pulmonology. I have spent 40 minutes coordinating this discharge.
[2016-11-06 10:34] VITALS: BP 157/115
== END 2016-11-06 13:40 | disposition home or self-care (01) | DRG 140 ==
LOC: 2NNU 20:25 → EMEROO 20:25 → 2NNU 23:53 → 3ANU 11-05 11:46
PROVIDERS: ADMIT Internal Medicine; ATTEND Internal Medicine

== ENCOUNTER 2019-12-24 18:24 | Observation (INO) ==
[2019-12-24] MEDS ORDERED: Isovue-370 500 ML BOTTLE IVP ONE (19:01)
[2019-12-24 19:16] LABS: Basophils # 0.1 K/mcL (0.0-0.2); Basophils % 0.4 %; Eosinophils # 0.2 K/mcL (0.0-0.6); Hematocrit 44.4 % (35.3-44.9); Hemoglobin 14.1 g/dL (11.5-15.4); Immature Granulocytes % 0.2 % (0-4); Lymphocytes # 1.3 K/mcL (0.6-4.6); Mean Corpuscular HGB Conc 31.8 g/dL (31.6-35.5); Mean Corpuscular Hemoglobin 28.5 pg (28.0-33.3); Mean Corpuscular Volume 89.9 fL (83.0-100.0); Mean Platelet Volume 9.9 fL (9.4-12.4); Monocytes # 0.8 K/mcL (0.0-1.3); Monocytes % 5.1 %; Neutrophils # 13.9 K/mcL (1.6-8.9); Platelet Count 257 K/mcL (140-400); Red Blood Count 4.94 M/mcL (3.82-4.97); Red Cell Distribution Width 13.5 % (11.5-14.5); Segmented Neutrophils % 85.3 %; White Blood Count 16.3 K/mcL (4.3-11.1)
[2019-12-24 19:27] LABS: BUN/Creatinine Ratio 10 (6-26); Blood Urea Nitrogen 7 mg/dL (6-20); Calcium 9.2 mg/dL (8.6-10.3); Carbon Dioxide 29 mEq/L (23-29); Chloride 101 mEq/L (98-107); Glucose 100 mg/dL (70-105); Osmolality,Calculated 290 (280-300); Potassium 3.2 mEq/L (3.5-5.1); Sodium 141 mEq/L (136-145); eGFR For African Americans > 60 (> 60); eGFR For Non-African Americans > 60 (> 60)
[2019-12-24 19:28] LABS: Troponin I < 0.03 ng/mL (< 0.04)
[2019-12-24 21:00] LABS: Alanine Aminotransferase 10 Units/L (7-52); Albumin 4.2 g/dL (3.5-5.7); Albumin/Globulin Ratio 1.3 (1.1-2.2); Alkaline Phosphatase 61 Units/L (34-104); Aspartate Amino Transferase 18 Units/L (13-39); Bilirubin,Direct 0.1 mg/dL (0.0-0.2); Bilirubin,Indirect 0.4 mg/dL (0.0-1.0); Bilirubin,Total 0.5 mg/dL (0.3-1.0); Globulin 3.2 g/dL (2.4-3.5); Total Protein 7.4 g/dL (6.4-8.9)
[2019-12-24 21:45] LABS: Lipase < 3 Units/L (11-82)
[2019-12-24] MEDS ORDERED: cefTRIAXone 1,000 MG in 0.9 % Sodium Chloride Mini Bag 100 ML IVPB ONE (22:03)
[2019-12-24] MEDS ORDERED: Azithromycin 500 MG in D5% in Water 250 ML IVPB ONE (22:03)
[2019-12-24] MEDS ORDERED: lisinopriL 20 MG TABLET PO STA (22:26)
[2019-12-25] MEDS ORDERED: Naloxone 0.4 MG/ML INJ IVP PRN (00:02)
[2019-12-25] MEDS ORDERED: Nicotine 14 MG PATCH.TD24 TD SCH (00:45)
[2019-12-25] MEDS: Acetaminophen 325 MG TABLET PO PRN ×3 (00:52→19:36)
[2019-12-25] MEDS: Ondansetron 4 MG/2 ML VIAL IVP PRN ×2 (00:54→20:20)
[2019-12-25] MEDS: Nicotine 14 MG PATCH.TD24 TD SCH (00:56)
[2019-12-25] MEDS: *HR* Heparin 5,000 UNIT/ML VIAL SQ SCH ×4 (01:00→21:15)
[2019-12-25 01:54] LABS: Hematocrit 44.1 % (35.3-44.9); Hemoglobin 13.9 g/dL (11.5-15.4); Mean Corpuscular HGB Conc 31.5 g/dL (31.6-35.5); Mean Corpuscular Hemoglobin 29.3 pg (28.0-33.3); Mean Corpuscular Volume 92.8 fL (83.0-100.0); Mean Platelet Volume 9.4 fL (9.4-12.4); Platelet Count 227 K/mcL (140-400); Red Blood Count 4.75 M/mcL (3.82-4.97); Red Cell Distribution Width 13.5 % (11.5-14.5); White Blood Count 17.4 K/mcL (4.3-11.1)
[2019-12-25 02:11] LABS: BUN/Creatinine Ratio 13 (6-26); Blood Urea Nitrogen 8 mg/dL (6-20); Calcium 8.9 mg/dL (8.6-10.3); Carbon Dioxide 29 mEq/L (23-29); Chloride 100 mEq/L (98-107); Glucose 154 mg/dL (70-105); Osmolality,Calculated 285 (280-300); Potassium 3.1 mEq/L (3.5-5.1); Sodium 137 mEq/L (136-145); eGFR For African Americans > 60 (> 60); eGFR For Non-African Americans > 60 (> 60)
[2019-12-25 03:04] LABS: Adenovirus Not Detected (Not Detect); Bordetella Pertussis Not Detected (Not Detect); Chlamydophila pneumoniae Not Detected (Not Detect); Coronavirus 229E Not Detected (Not Detect); Coronavirus HKU1 Not Detected (Not Detect); Coronavirus NL63 Not Detected (Not Detect); Coronavirus OC43 Not Detected (Not Detect); Human Metapneumovirus Not Detected (Not Detect); Human Rhinovirus/Enterovirus Not Detected (Not Detect); Influenza A Subtype 2009 H1 Not Detected (Not Detect); Influenza B Not Detected (Not Detect); Mycoplasma pneumoniae Not Detected (Not Detect); Parainfluenza Virus 1 Not Detected (Not Detect); Parainfluenza Virus 2 Not Detected (Not Detect); Parainfluenza Virus 3 Not Detected (Not Detect); Parainfluenza Virus 4 Not Detected (Not Detect); Respiratory Syncytial Virus Not Detected (Not Detect); SARS-CoV-2 Not Detected (Not Detect)
[2019-12-25] MEDS: Ipratropium/Albuterol Neb 3 ML IH SCH ×7 (04:27→23:43)
[2019-12-25] MEDS: MethylPREDNISolone 40 MG/ML VIAL IVP SCH ×3 (05:51→13:25)
[2019-12-25] MEDS: lisinopriL 20 MG TABLET PO SCH (17:55)
[2019-12-25] MEDS: diazePAM 5 MG TABLET PO SCH (19:37)
[2019-12-25] MEDS ORDERED: cefTRIAXone 1,000 MG in 0.9 % Sodium Chloride Mini Bag 100 ML IVPB SCH (20:00)
[2019-12-25] MEDS ORDERED: Azithromycin 500 MG in 0.9 % Sodium Chloride 250 ML IVPB SCH (20:00)
[2019-12-26 02:17] LABS: Basophils % 0.1 %; Hematocrit 41.3 % (35.3-44.9); Hemoglobin 13.4 g/dL (11.5-15.4); Immature Granulocytes % 0.4 % (0-4); Lymphocytes # 1.4 K/mcL (0.6-4.6); Lymphocytes % 9.6 %; Mean Corpuscular HGB Conc 32.4 g/dL (31.6-35.5); Mean Corpuscular Hemoglobin 28.8 pg (28.0-33.3); Mean Corpuscular Volume 88.8 fL (83.0-100.0); Mean Platelet Volume 9.8 fL (9.4-12.4); Monocytes # 1.1 K/mcL (0.0-1.3); Monocytes % 7.4 %; Neutrophils # 12.1 K/mcL (1.6-8.9); Platelet Count 297 K/mcL (140-400); Red Blood Count 4.65 M/mcL (3.82-4.97); Red Cell Distribution Width 13.6 % (11.5-14.5); Segmented Neutrophils % 82.5 %; White Blood Count 14.7 K/mcL (4.3-11.1)
[2019-12-26 02:38] LABS: BUN/Creatinine Ratio 25 (6-26); Blood Urea Nitrogen 16 mg/dL (6-20); Calcium 9.5 mg/dL (8.6-10.3); Carbon Dioxide 29 mEq/L (23-29); Chloride 102 mEq/L (98-107); Glucose 112 mg/dL (70-105); Osmolality,Calculated 294 (280-300); Phosphorous 3.7 mg/dL (2.7-4.5); Potassium 3.5 mEq/L (3.5-5.1); Sodium 141 mEq/L (136-145); eGFR For African Americans > 60 (> 60); eGFR For Non-African Americans > 60 (> 60)
[2019-12-26] MEDS: Nicotine 14 MG PATCH.TD24 TD SCH (03:22)
[2019-12-26] MEDS: Ipratropium/Albuterol Neb 3 ML IH SCH ×3 (03:37→11:22)
[2019-12-26] MEDS: *HR* Heparin 5,000 UNIT/ML VIAL SQ SCH (05:58)
[2019-12-26] MEDS: MethylPREDNISolone 40 MG/ML VIAL IVP SCH (05:58)
[2019-12-26 07:29] VITALS: BP 154/93
[2019-12-26] MEDS: lisinopriL 20 MG TABLET PO SCH (08:23)
[2019-12-26] MEDS: diazePAM 5 MG TABLET PO SCH (08:23)
[2019-12-26] MEDS ORDERED: diazePAM 5 MG TABLET PO SCH (09:00)
[2019-12-26] MEDS ORDERED: lisinopriL 20 MG TABLET PO SCH (09:00)
[2019-12-26] MEDS ORDERED: Furosemide 20 MG TABLET PO SCH (09:00)
== END 2019-12-26 15:30 | disposition home or self-care (01) ==
LOC: 3BNU 18:24 → EMEROOARM 18:24 → SUATTDRO 22:54 → 3BNU 23:35
PROVIDERS: ADMIT Internal Medicine; ATTEND Internal Medicine